=== PATIENT | male | born 1955 | race Caucasian/White ===

== ENCOUNTER → 2018-08-11 13:01 | Outpatient (CLI) | payer BC, SELFPAY ==
--- NOTE | 2018-08-11 13:26 | CT_ITS ---
CT angio abdomen CLINICAL INDICATION: Unexplained weight loss, atherosclerotic vascular disease, smoker ITS.REASON: rule out mesenteric ischemia ORDERING PHYSICIAN: Samson Do MD PATIENT AGE: 63 years COMPARISON: None TECHNIQUE: Axial images obtained with sagittal and coronal reformats. All CT scans at the facility use one or more dose reduction, viz: automated exposure control, ma/kV adjustment per patient size (including targeted exams where dose is matched to indication, i.e. head), or iterative reconstruction technique. PROCEDURE: Oral Contrast: None IV Contrast: 75 mL's Optiray 350 . FINDINGS: CT angiogram: There are mild atherosclerotic changes of the aortoiliac vessels as well as the celiac and SMA.. No significant stenosis of the celiac or SMA. ALENA is patent. A small calcific plaque is present at the ostium of the ALENA. No evidence of aortic aneurysm Mild atheromatous changes are present at the proximal aspect of the right renal artery with approximately 50% stenosis. Nonangiographic findings: Lower thorax: There are 2 noncalcified nodules in the right middle lobe. These measure 5 mm each. A noncalcified 4 mm nodule present in the left lower lobe laterally and a calcified granuloma is present in the left lower lobe inferiorly. There are multiple nonobstructing right renal calculi measuring up to 6 mm in the lower pole. The spleen, both adrenal glands, and pancreas have an unremarkable appearance. There is a mild amount of retained colonic feces. There is diverticulosis of the descending and sigmoid colon. No evidence of diverticulitis. There are degenerative and postsurgical changes of the lumbar spine. IMPRESSION: 1. Mild atheromatous changes of the aorta and its branches with no significant stenosis of the celiac or SMA. 2. The ALENA is small and there is a calcific plaque at its ostium suggesting a high-grade stenosis. It is difficult to evaluate the degree of stenosis due to the small caliber of the artery. 3. Multiple right renal nonobstructing calculi 4. Colonic diverticulosis 5. Approximately 50% stenosis of the ostium of the right renal artery
[2018-08-11 13:35] LABS: Basophils # 0.1 K/mm3 (0-0.2); Basophils % 0.8 % (0.1-2.0); Eosinophils # 0.4 K/mm3 (0.0-0.4); Eosinophils % 3.4 % (0.1-12.0); Hematocrit 47.4 % (42.0-52.0); Hemoglobin 16.1 g/dL (14.1-18.0); Lymphocytes # 1.7 K/mm3 (0.7-4.5); Lymphocytes % 16.8 % (10-50); Mean Corpuscular HGB Conc 33.9 g/dL (31.8-35.4); Mean Corpuscular Hemoglobin 33.1 pg (27.0-31.2); Mean Corpuscular Volume 97.6 fl (80-94); Mean Platelet Volume 7.2 fl (7.4-10.4); Monocytes # 0.7 K/mm3 (0.1-1.0); Monocytes % 6.6 % (1.7-9.3); Neutrophils # 7.4 K/mm3 (1.8-7.8); Neutrophils % 72.3 % (37.0-80.0); Platelet Count 213 K/mm3 (142-424); Red Blood Count 4.85 M/mm3 (4.60-6.20); Red Cell Distribution Width 12.6 % (11.5-17.5); White Blood Count 10.3 K/mm3 (4.8-10.8)
[2018-08-11 13:48] LABS: Alanine Aminotransferase 38 U/L (12-78); Albumin Level 3.6 gm/dL (3.4-5.0); Alkaline Phosphatase 85 U/L (46-116); Anion Gap 10.3 mEq/L (5-15); Aspartate Amino Transferase 20 U/L (15-37); Bilirubin,Direct 0.2 mg/dL (0.0-0.2); Bilirubin,Indirect 0.7 mg/dL (0.0-0.9); Bilirubin,Total 0.9 mg/dL (0.2-1.0); Blood Urea Nitrogen 19 mg/dL (7-18); Calcium 8.8 mg/dL (8.5-10.1); Carbon Dioxide 30 mmol/L (21.0-32.0); Chloride 104 mmol/L (98-107); Chol/HDL Ratio 2.3 (1-3.5); Cholesterol 104 mg/dL (140-200); Creatinine,Serum 0.78 mg/dL (0.70-1.30); Estimated Glomerular Filt Rate 101 ml/min (>60); GFR (African American) 122 ML/MIN (>60); Glucose 83 mg/dL (74-106); HDL Cholesterol 45 mg/dL (27-67); LDL Cholesterol 46 mg/dL (0-130); Potassium 4.3 mmoL/L (3.5-5.1); Sodium 140 mmol/L (136-145); Total Protein,Serum 7.4 gm/dL (6.4-8.2); Triglycerides 67 mg/dL (30-200); VLDL Cholesterol 13 mg/dL (0-40)
== END ==
PROVIDERS: PCP Family Medicine; Visit Provider Internal Medicine
DX: R63.4 Abnormal weight loss (principal); R63.0 Anorexia; I25.10 Atherosclerotic heart disease of native coronary artery without angina pectoris; E78.49 Other hyperlipidemia; I48.0 Paroxysmal atrial fibrillation; F10.20 Alcohol dependence, uncomplicated; I11.0 Hypertensive heart disease with heart failure; I25.2 Old myocardial infarction; I44.0 Atrioventricular block, first degree; I50.32 Chronic diastolic (congestive) heart failure; K55.9 Vascular disorder of intestine, unspecified; R00.1 Bradycardia, unspecified; R11.0 Nausea
CPT/HCPCS: 36415; 74175; 80048; 80061; 80076; 85025; Q9967

== ENCOUNTER → 2018-09-01 08:28 | Outpatient (CLI) | payer BC, SELFPAY ==
[2018-09-01 12:16] LABS: Blood Urea Nitrogen 15 mg/dL (7-18); Creatinine,Serum 0.75 mg/dL (0.70-1.30); Estimated Glomerular Filt Rate 105 ml/min (>60); GFR (African American) 127 ML/MIN (>60)
== END ==
PROVIDERS: Visit Provider Internal Medicine
DX: R07.9 Chest pain, unspecified (principal); I48.91 Unspecified atrial fibrillation; I50.30 Unspecified diastolic (congestive) heart failure; E78.5 Hyperlipidemia, unspecified; F10.20 Alcohol dependence, uncomplicated; J44.9 Chronic obstructive pulmonary disease, unspecified; R00.1 Bradycardia, unspecified
CPT/HCPCS: 36415; 82565; 84520

== ENCOUNTER → 2020-03-03 13:02 | Outpatient (CLI) | payer MEDICARE, OTHER, SELFPAY ==
--- NOTE | 2020-03-03 13:04 | CA_ITS ---
APPROVED REPORT EXAM: Comprehensive 2D, Doppler, and color-flow Echocardiogram Shear Assembler: Lisset Randall CRT Ht: 6 ft 3 in Wt: 201lbs BSA: 2.20 BP: 138/71 mmHg Indications: COPD, Smoker, fatigue, HTN, SOB, hyperlipidemia, CAD, PAD, HF, AFIB, alcoholism, stent 2D Dimensions LVOT 1.96 cm (M/F) 1.5-2.5 M-Mode Dimensions RVDd 3.16 cm (0.9-2.6) LA Diam 3.76 cm (1.9-4.0) LVDd 5.48 cm (3.5-5.7) Ao Diam 4.14 cm (2.0-3.7) LVDs 4.03 cm (3.5-5.7) IVSd 1.48 cm (0.6-1.1) PWd 1.10 cm (0.6-1.1) EF (Teich) 51.20% FS 26.50% EDV (Teich) 146.20 mL ESV (Teich) 71.30 mL LV Diastology E Decel Time 207.00 (160-240 msec) E/A Ratio 5.82 MED E' 12.10 (< 7 cm/sec) E'/MED E' Ratio 8.46 (>14) LAT E' 3.20 (<10 cm/sec) E/LAT E' Ratio 32.00 (>14) Aortic Valve AO Peak GR. 6.60 mmHg Mitral Valve MV A Velocity 18.00 (40-130 cm/s) E/A Ratio 5.82 MV Decel. Time 207.00 (160-240 ms) Pulmonary Valve PV Peak Velocity 48.00 (50-150 cm/s) Tricuspid Valve TR P. Velocity 219.00 cm/s RAP Estimate 10.00 mmHg RVSP 29.10 mmHg Left Ventricle Left atrium is mildly enlarged, left ventricle is normal size, mild concentric left ventricular hypertrophy, visually estimated ejection fraction 55% with no regional wall motion abnormality, diastolic parameters are inconclusive. Right Ventricle Right atrium and right ventricle are mildly enlarged with normal contractility. Aortic Valve Aortic valve is minimally thickened and fibrosed, there is no aortic stenosis or aortic insufficiency. Mitral Valve Mitral valve is grossly normal, there is mild mitral regurgitation. Tricuspid Valve Tricuspid valve is grossly normal, there is mild tricuspid regurgitation. Pulmonic Valve Pulmonic valve is poorly visualized. Great Vessels Aortic root is normal size. Pericardium No significant pericardial effusion noted. Conclusion 1. Mild biatrial enlargement, normal left ventricular size, mild concentric left ventricular hypertrophy, visually estimated ejection fraction 55% with no regional wall motion abnormality, diastolic parameters are inconclusive. 2. Mildly enlarged right ventricle with normal contractility. 3. Mild mitral and tricuspid regurgitation. 4. No significant pericardial effusion noted. Electronically signed by : Kan Bills, 03/07/2020 05:51:45
== END ==
PROVIDERS: PCP Family Medicine; Visit Provider Physician Assistant
DX: E78.2 Mixed hyperlipidemia (principal); F10.20 Alcohol dependence, uncomplicated; I11.0 Hypertensive heart disease with heart failure; I25.10 Atherosclerotic heart disease of native coronary artery without angina pectoris; I44.0 Atrioventricular block, first degree; I48.0 Paroxysmal atrial fibrillation; I50.32 Chronic diastolic (congestive) heart failure; I73.9 Peripheral vascular disease, unspecified; J43.8 Other emphysema; K55.1 Chronic vascular disorders of intestine; R06.00 Dyspnea, unspecified
CPT/HCPCS: 93306

== ENCOUNTER 2022-07-31 11:58 | Day surgery (SDC) | payer MEDICARE, OTHER, SELFPAY ==
[2022-07-31 12:12] VITALS: BMI 23.2
[2022-07-31 13:46] VITALS: BP 135/59; PULSE 51; RESP 16; O2SAT 97
[2022-07-31 14:15] VITALS: BP 144/70; PULSE 54; RESP 20; O2SAT 96
--- NOTE | 2022-07-31 14:27 | P.PCN_ITS ---
[facility] Loop Recorder Date: 07/31/22 Time: 14:27 Procedure Performed:: Implantation of loop recorder Indication:: Bradycardia Syncope Technique:: Patient was brought to the cardiac Dairy Chemist. After informed consent obtained, 1% lidocaine with epinephrine was used to anesthetize the site along the left anterior aspect of the chest near the sternal border. Using the preformed scalpel, an incision was made and using the supplied preloaded apparatus, the loop recorder was placed subcutaneously without difficulty. Following the deployment of the loop recorder interrogation of the device was performed to ensure appropriate voltage was being detected. Once this was verified, Steri- Strips were placed over the incision and the patient was prepped to discharge home. Patient tolerated the procedure well with minimal discomfort. Impression:: Successful implantation of loop recorder Serial Number:: [employer] Lux-Dx model number M301 Serial #[id number] Plan:: Routine postop care
[2022-07-31 14:30] VITALS: BP 124/77; PULSE 55; RESP 20; O2SAT 97
== END 2022-07-31 14:35 | disposition home or self-care (01) ==
PROVIDERS: PCP Family Medicine; Visit Provider Internal Medicine
DX: R42 Dizziness and giddiness (principal); R00.1 Bradycardia, unspecified; R55 Syncope and collapse
CPT/HCPCS: 33285; C1764

== ENCOUNTER 2023-05-13 07:08 | Outpatient (CLI) | payer MEDICARE, OTHER, SELFPAY ==
--- NOTE | 2023-05-13 07:09 | NM_ITS ---
APPROVED REPORT Exam: Nuclear Stress Test Indication: SOB, Syncope, HTN, High cholesterol, Tobacco use, Family history, CAD, Hx of NM Patient Location: Outpatient Stress Tech: Kiera Bell NC Tech:Jesusita Fan, ARRT, RT (R)(N) Ht: 6 ft 3 in Wt: 190 lbs HR: 60 bpm BP: 141/69 mmHg BSA: 2.15 m2 Rhythm: Atrial Fibrillation TID: 1.11 BMI: 23.7 History: SOB, Syncope, HTN, High cholesterol, Tobacco use, Family history, CAD, Hx of NM Procedure: Patient received 0.4 mg of intravenous Lexiscan, resting heart rate 60 bpm, resting blood pressure 141/69 mmHg, with Lexiscan maximum heart rate achieved was 80 bpm which is % of the maximum predicted heart rate and blood pressure was 146/77 mmHg. With Lexiscan, patient denied any complaint of chest pain. Cardiac Stress and Resting SPECT Images: Cardiac Stress and Resting SPECT images were obtained using technetium 99m Myoview 31.2 mCi stress and 10.30 mCi at rest. Resting and stress imaging in supine and prone positions demonstrate a large sized, severe, fixed perfusion defect in the inferior, inferolateral, and lateral LV hernandez, as well as medium-sized, moderate, fixed perfusion in the basal septal LV wall. Gated imaging demonstrates mild reduction in global LV systolic function. There is moderate hypokinesis of the basal to mid inferior and lateral LV hernandez. LVEF is calculated at 46%. Conclusion: Large sized, severe, fixed perfusion defect in the inferior, inferolateral, and lateral LV hernandez, as well as medium-sized, moderate, fixed perfusion in the basal septal LV wall. There is no evidence of reversible ischemia. Gated imaging demonstrates mild reduction in global LV systolic function. There is moderate hypokinesis of the basal to mid inferior and lateral LV hernandez. LVEF is calculated at 46%. Of note, the LVEF may be inaccurate in the setting of atrial fibrillation and frequent PVCs during acquisition of the study images. Electronically signed by : Maci Miles MD 05/13/2023 11:43:14
--- NOTE | 2023-05-13 08:28 | CA_ITS ---
APPROVED REPORT EXAM: Comprehensive 2D, Doppler, and color-flow Echocardiogram Circulation Supervisor: Katia Michael RT(R) Ht: 6 ft 3 in Wt: 194lbs BSA: 2.17 BP: 157/68 mmHg Indications: SOB, syncope, smoker, HTN, hyperlipidemia. 2D Dimensions LVEF (Bergeron's) 74.00 % M: 52 - 72 LV Volume 101.90 mL M: 62 - 150 LV Volume Index 47.0 mL/m2 M: 34 - 74 LA Volume 69.50 mL LA Volume Index 32.03 mL/m2 (M/F) 16-34 EF AP4 72.00 % EF AP2 74.0 % EF BP 74.0 % GL Strain -15.0 % M-Mode Dimensions RVDd 2.24 cm (0.9-2.6) LA Diam 4.04 cm (1.9-4.0) LVDd 5.46 cm (3.5-5.7) LVDs 4.29 cm (3.5-5.7) IVSd 0.94 cm (0.6-1.1) PWd 1.34 cm (0.6-1.1) EF (Teich) 43.00% FS 21.40% EDV (Teich) 145.00 mL ESV (Teich) 82.60 mL LV Diastology E Decel Time 170 (160-240 msec) E/A Ratio 2.3 Mitral Valve MV E Max Dilshad. 100.0 (40-130 cm/s) MV A Velocity 43.0 (40-130 cm/s) E/A Ratio 2.33 MV PHT 50.0 ms Left Ventricle The left ventricle is normal size. The left ventricular systolic function is normal. The left ventricular ejection fraction is within the normal range. There is increased LV wall thickness. There is normal LV segmental wall motion. Diastolic function is indeterminate. LVEF is 55%. Right Ventricle The right ventricle is normal size. The right ventricular systolic function is normal. Atria The left atrium size is normal. The right atrium size is normal. There is no Doppler evidence of interatrial shunt. Lipomatous hypertrophy of the interatrial septum is noted. Aortic Valve The aortic valve is mildly thickened. There is no aortic valvular stenosis. No aortic regurgitation is present. Mitral Valve The mitral valve leaflets are mildly thickened. No evidence of mitral valve stenosis. Trace mitral regurgitation. Tricuspid Valve The tricuspid valve leaflets are thin and pliable. Trace tricuspid regurgitation. There is insufficient TR jet to estimate RVSP. Pulmonic Valve The pulmonary valve is normal in structure. Trace pulmonic regurgitation. Great Vessels The aortic root is normal in size. The ascending aorta is not well-visualized. The IVC is not well-visualized. Pericardium There is no pericardial effusion. Electronically signed by : Maci Miles MD 05/16/2023 01:22:17
[2023-05-13] MEDS: REGADENOSON 0.4MG/5ML SYRINGE 0.400000000000000022 MG IV (08:43)
[2023-05-13] MEDS: SODIUM CHLORIDE 0.9% 10ML SYR (RAD ONLY) 10 ML IV ×2 (08:43)
[2023-05-13] MEDS: ISOTOPE MYOVIEW (PER STUDY) 1 DOSE IV (08:43)
--- NOTE | 2023-05-13 08:57 | CA_ITS ---
APPROVED REPORT Exam: Pharmacologic Technologist: Kiera Bell Ht: 6 ft 3 in Wt: 194 lbs BSA: 2.17 m2 HR: 39 bpm BP: 141/69 mmHg Rhythm: Atrial Fibrillation Indications: Dyspnea, Syncope Medical History Medications: Vitamin D3,,,,, Losartan,,,,, Atorvastatin,,,,, Ropinirole,,,,, XaRELTO,,,,, Tramadol,,,,, Nitroglycerin,,,,, SilDENAFIL,,,,, Ezetimibe,,,,, Stress Test Details Test: LEXISCAN HR Resting HR: 60 bpm Max Heart Rate (APMHR): 152 bpm Max HR Achieved: 80 bpm Target HR (85% APMHR): 129 bpm % of APMHR: 53 Recovery HR: 58 bpm BP Resting BP: 141.0/69.0 mmHg Max BP: 146.0/77.0 mmHg Recovery BP: 146.0/77.0 mmHg ECG Resting ECG: Atrial fibrillation, Nonspecific ST changes Stress ECG: No ST changes Arrhythmia: Frequent PVCs Clinical Exercise duration: 04:00 min Highest Stage Achieved: Exercise capacity: 1.0 METs Stress ECG Conclusion Symptoms: Shortness of breath, nausea, headache Arrhythmias/Ectopy: Frequent PVCs ST-T Changes: No significant ST changes Conclusion: EKG stress portion unremarkable. Myoview images reported separately. Test Summary REST . . . . . . . Resting REST 13:28 . . 60 . 141/ 69 . . Stage 1 . . . . . . . Myoview Injected Stage 1 01:00 . . 56 . . . . Stage 2 01:00 . . 63 . 136/ 64 . . Stage 3 01:00 . . 57 . 141/ 73 . . Stage 4 01:00 . . 50 . 125/ 71 . Stop exercise at 04:00 RECOVERY 01:00 . . 56 . . . . RECOVERY 02:00 . . 54 . . . . RECOVERY 03:00 . . 56 . . . . RECOVERY 03:55 . . 55 . 146/ 77 . . Electronically signed by : Maci Miles MD 05/13/2023 11:39:42
== END 2023-05-13 23:59 ==
PROVIDERS: Visit Provider Nurse Practitioner Family
DX: E78.5 Hyperlipidemia, unspecified (principal); I11.0 Hypertensive heart disease with heart failure; I25.10 Atherosclerotic heart disease of native coronary artery without angina pectoris; I48.91 Unspecified atrial fibrillation; I50.30 Unspecified diastolic (congestive) heart failure; R93.1 Abnormal findings on diagnostic imaging of heart and coronary circulation; R06.09 Other forms of dyspnea; R94.31 Abnormal electrocardiogram [ECG] [EKG]; R55 Syncope and collapse
CPT/HCPCS: 78452; 93017; 93018; 93306; A9502; J2785

== ENCOUNTER 2023-06-11 08:28 | Day surgery (SDC) | payer MEDICARE, OTHER, SELFPAY ==
[2023-06-11] VITALS (12 sets, daily range): BP systolic 112–153; BP diastolic 57–88; PULSE 40–58; RESP 17–18; TEMP 36.3; O2SAT 93–98; BMI 25.0
--- NOTE | 2023-06-11 07:18 | IR_ITS ---
APPROVED REPORT Patient Location: Outpatient [facility] Representative: REZA Wilde RT (R) PROCEDURES Left heart catheterization Left ventriculogram Selective coronary angiogram INDICATION Known coronary artery disease, Angina pectoris, Abnormal Myoview Informed consent was obtained prior to the procedure. COMPLICATIONS NONE Estimated Blood Loss: LESS THAN 10 ML TECHNIQUE One percent lidocaine used to anesthetize the right anterior aspect of the wrist. The right radial artery was accessed via the Seldinger technique. A 6 Tajik sheath was placed in the right radial artery. 2.5 mg of Verapamil, 800 mcg of nitroglycerin, 1mg Lidocaine and 5000 U Heparin were given through the arterial sheath. The papa catheter was also used to perform left heart catheterization, left ventriculogram and selective coronary angiogram. At the end of the procedure the sheath was removed good hemostasis was achieved using Traclet band, patient was transferred to the postop holding area in stable condition. ANGIOGRAPHIC RESULTS The left main artery Normal The left anterior descending artery Has a stent in the proximal segment which is widely patent with minimal in-stent restenosis and excellent proximal distal transitioning. The remaining LAD is widely patent with mild diffuse 10% luminal irregularities The circumflex artery Is a large dominant vessel with a proximal concentric 30% stenosis with remaining vessel being widely patent with diffuse 10% luminal regularities The right coronary artery Nondominant normal The THORNE ventriculogram reveals Dilated ventricle with reduced ejection fraction estimated between 35 and 45% The left ventricular end-diastolic pressure 15 mmHg IMPRESSION Widely patent proximal LAD stent Mild to moderate proximal dominant circumflex artery disease as described above Dilated ventricle with reduced ejection fraction unable to quantitate with LV gram Normal LVEDP PLAN 1. Medical management 2. Recommend echocardiogram to better evaluate ejection fraction Electronically signed by : Samson Do MD 06/11/2023 11:25:23
[2023-06-11 09:05] LABS: Anion Gap 7.9 mEq/L (5-15); Carbon Dioxide 33 mmol/L (22.0-30.0); Chloride 103 mmol/L (98-107); Glucose 89 mg/dl (74-100); Potassium 3.9 mmoL/L (3.5-5.1); Sodium 140 mmol/L (136-145)
[2023-06-11 09:08] LABS: Basophils # 0.1 K/mm3 (0-0.2); Eosinophils # 0.3 K/mm3 (0.0-0.4); Eosinophils % 2.2 % (0.1-12.0); Hemoglobin 16.3 g/dL (14.1-18.0); Lymphocytes # 1.3 K/mm3 (0.7-4.5); Lymphocytes % 11.3 % (10-50); Mean Corpuscular HGB Conc 32.6 g/dL (31.8-35.4); Mean Corpuscular Hemoglobin 36.5 pg (27.0-31.2); Mean Corpuscular Volume 112.1 fl (80-94); Mean Platelet Volume 7.9 fl (7.4-10.4); Monocytes # 0.9 K/mm3 (0.1-1.0); Monocytes % 7.6 % (1.7-9.3); Neutrophils # 8.8 K/mm3 (1.8-7.8); Platelet Count 187 K/mm3 (142-424); Red Blood Count 4.46 M/mm3 (4.60-6.20); Red Cell Distribution Width 13.9 % (11.5-17.5); White Blood Count 11.3 K/mm3 (4.8-10.8)
[2023-06-11 09:26] LABS: Blood Urea Nitrogen 15 mg/dl (9-20)
[2023-06-11 09:27] LABS: Creatinine Clearance Estimated 91 mL/min (50-200); Estimated Glomerular Filt Rate 112 ml/min (>60); GFR (African American) 136 ML/MIN (>60)
[2023-06-11] MEDS: diphenhydrAMINE 50MG/ML VIAL 50 MG IV (11:04)
[2023-06-11] MEDS: VERAPAMIL 2.5MG/ML 2ML VIAL 2.5 MG IV (11:04)
[2023-06-11] MEDS: 0.9 % SODIUM CHLORIDE 500 ML 25 ML IV (11:05)
[2023-06-11] MEDS: HEPARIN 1,000 UNITS/ML 10ML VIAL (CATH LAB) 10000 UNIT IV (11:05)
[2023-06-11] MEDS: HEPARIN 1,000 UNITS/500ML NS (CATH LAB) 3000 UNIT IV (11:05)
[2023-06-11] MEDS: LIDOCAINE 1% 10ML MDV 20 ML IJ (11:05)
[2023-06-11] MEDS: FENTANYL 100MCG/2ML VIAL 50 MCG IV (11:07)
[2023-06-11] MEDS: MIDAZOLAM HCL 1MG/1ML 5ML VIAL 1 MG IV (11:07)
[2023-06-11] MEDS: NITROGLYCERIN 800MCG/8ML SYR (CATH LAB) 800 MCG IA (11:09)
[2023-06-11] MEDS: IOPAMIDOL-370 (76%);100ML BOTTLE 50 ML IV (14:37)
== END 2023-06-11 14:32 | disposition home or self-care (01) ==
PROVIDERS: Visit Provider Internal Medicine
DX: I25.118 Atherosclerotic heart disease of native coronary artery with other forms of angina pectoris (principal); R93.1 Abnormal findings on diagnostic imaging of heart and coronary circulation; Z95.5 Presence of coronary angioplasty implant and graft; Z79.899 Other long term (current) drug therapy; Z79.01 Long term (current) use of anticoagulants; I11.0 Hypertensive heart disease with heart failure; E78.5 Hyperlipidemia, unspecified; I50.32 Chronic diastolic (congestive) heart failure; F17.210 Nicotine dependence, cigarettes, uncomplicated; F10.10 Alcohol abuse, uncomplicated
CPT/HCPCS: 80048; 85025; 93458; 99152; C1725; C1760; C1769; J1644; Q9967

== ENCOUNTER 2023-07-01 10:25 | Day surgery (SDC) | payer MEDICARE, OTHER, SELFPAY ==
--- NOTE | 2023-07-01 07:06 | IR_ITS ---
APPROVED REPORT Patient Location: Outpatient Metalworking Instructor: REZA Florentino RT (R) PROCEDURES 1. Pocket formation for biventricular pacemaker generator with cardiac resynchronization therapy. 2. Placement of atrial sensing and pacing lead into the right atrial appendage. 3. Placement of a right ventricular sensing, pacing lead in the right ventricular apex. 4. Placement of left ventricular sensing pacing lead via the coronary sinus. 5. Permanent cardiac resynchronization therapy with biventricular pacemaker. 6. Loop recorder device removal. INDICATION Paroxysmal Atrial Fibrilation, Ejection fraction 30%, Anticipated right ventricular pacing in excess of 20 and 40% Informed consent was obtained prior to the procedure. COMPLICATIONS NONE Estimated Blood Loss: LESS THAN 10 ML TECHNIQUE 1% Lidocaine with epinephrine used to anesthetized the left anterior aspect of the chest. Scalpel was used to make the initial cutaneous incision while electrocautery was used to dissect down tinto the fascia. The fascia was lifted off the pectoralis muscle and digitally manipulated creating a pocket for the pacemaker. The patient was then placed in Trendelenburg position and the subclavian vein was accessed three times via the Selinger technique, there are three wires in the vein. A 9.5 Latvian sheath and dilator was then placed over one of the wires while keeping the other two wires in place within the subclavian vein. The dilator was removed from the sheath. Using fluoroscopic guidance, contrast was used to visualize the coronary sinus, the left ventricular lead was placed into the coronary sinus. Electronic interrogation proved acceptable thresholds and voltage within the lead. Using 3-0 silk, the left ventricular lead was then secured into place and sheath peeled away. A 6 Latvian sheath was placed under fluoroscopic guidance into the subclavian vein over one of the wires while keeping the other wire in place within the subclavian vein. The dilator was removed from the sheath. Using fluoroscopic guidance, the ventricular lead was placed into the right ventricular apex, screwed and secured into place. Electronic interrogation proved acceptable thresholds and voltage within the lead. Using 3-0 silk, the ventricular lead was then secured into place. Lead was secured to the facia using the 3-0 silk. Following this, the sheath was pealed away. An additional 6 Latvian fresh sheath and dilator was placed over the existing wire. Using fluoroscopic guidance, the atrial lead was the placed into the right atrial appendage and screwed and secured in place. Electrical interrogation demonstrated acceptable thresholds and voltage number. The atrial lead was then secured into place using 3-0 silk. 1 gram of Ancef was used to flush the pocket. Following the pacemaker generator being secured to the fascia and in place, Monocryl was used to close the subcutaneous layers while terrance were used to close the cutaneous layer. A pressure dressing was placed and the patient was transferred to the postop holding area in stable condition for postoperative care. Small incision, using scalpel, made over loop device. Hemostats used to remove loop device from body. Dermabond and sterile dressing used to cover incision. INTERROGATION Generator Model number: Quadra Allure MPI, MID WIFE-P, [id number] Generator Serial number: [id number] Atrial lead model number: Tendril STS, 8TC, 52cm Atrial lead serial number: [id number] P-wave: N/A Impedance: 610 ohms Threshold: 1.7mV Right Ventricular lead model number: Tendril STS, 8TC, 58cm Right Ventricular lead serial number: [id number] R-wave: 0.5V@0.4ms Impedance: 680 ohms Threshold: 11.9mV Left Ventricular lead model number: Quartet, 1458Q, 86cm Left Ventricular lead serial number: [id number] R-wave: 1.0V@1.0ms Impedance: 1200 ohms Pacing Parameters: Mode: DDDR Base/Max Track:60 ppm / 130 ppm No diaphragmatic stimulation at 10 volts. IMPRESSION 1. Successful Pocket formation for biventricular pacemaker generator with cardiac resynchronization therapy. 2. Successful Placement of atrial sensing and pacing lead into the right atrial appendage. 3. Successful Placement of a right ventricular sensing, pacing lead in the right ventricular apex. 4. Successful Placement of left ventricular sensing pacing lead via the coronary sinus. 5. Successful Permanent cardiac resynchronization therapy with biventricular pacemaker. 6. Successful Loop recorder device removal. PLAN 1. Postop wound care. Electronically signed by : Samson Do MD 10/29/2023 08:26:40
[2023-07-01 10:28] VITALS: BMI 25.3
[2023-07-01 10:51] LABS: Basophils # 0.1 K/mm3 (0-0.2); Basophils % 1.1 % (0.1-2.0); Eosinophils # 0.3 K/mm3 (0.0-0.4); Eosinophils % 2.3 % (0.1-12.0); Hematocrit 50.4 % (42.0-52.0); Hemoglobin 16.6 g/dL (14.1-18.0); Lymphocytes # 1.5 K/mm3 (0.7-4.5); Lymphocytes % 11.4 % (10-50); Mean Corpuscular Hemoglobin 35.7 pg (27.0-31.2); Mean Corpuscular Volume 108.2 fl (80-94); Mean Platelet Volume 7.8 fl (7.4-10.4); Monocytes # 0.8 K/mm3 (0.1-1.0); Monocytes % 6.2 % (1.7-9.3); Neutrophils # 10.2 K/mm3 (1.8-7.8); Neutrophils % 78.9 % (37.0-80.0); Platelet Count 207 K/mm3 (142-424); Red Blood Count 4.66 M/mm3 (4.60-6.20); Red Cell Distribution Width 13.8 % (11.5-17.5); White Blood Count 12.9 K/mm3 (4.8-10.8)
[2023-07-01 10:58] LABS: Chloride 105 mmol/L (98-107); Potassium 4.1 mmoL/L (3.5-5.1); Sodium 140 mmol/L (136-145)
[2023-07-01 11:01] LABS: Blood Urea Nitrogen 10 mg/dl (9-20); Creatinine Clearance Estimated 92 mL/min (50-200); Estimated Glomerular Filt Rate 134 ml/min (>60); GFR (African American) 162 ML/MIN (>60)
[2023-07-01 11:02] LABS: Anion Gap 5.1 mEq/L (5-15); Calcium 9.5 mg/dl (8.4-10.2); Carbon Dioxide 34 mmol/L (22.0-30.0); Glucose 99 mg/dl (74-100)
--- NOTE | 2023-07-01 13:01 | EXP.ANES.CKL ---
[facility] Disclaimer: The information contained in this section may have been updated after the patient was seen, as this information can be updated by other users. Medical History (Updated 06/19/23 @ 11:34 by Delma Gibbons APRN) Fatigue Coronary arteriosclerosis PAD (peripheral artery disease) SOB (shortness of breath) on exertion Atypical angina Abnormal findings on diagnostic imaging of heart and coronary circulation Syncope Dyspnea HHD (hypertensive heart disease) Stenosis of inferior mesenteric artery HLD (hyperlipidemia) Social History Smoking Status: Current every day smoker tobacco type: cigarettes packs per day: 1 quit status: considering quitting alcohol intake: current substance use type: denies use current occupational status: unemployed, retired and disabled Travel in the last 8 weeks: Inside the [place] household members: spouse housing: house [facility] Anesthesia Checklist Patient Identification Patient Identification: Arm Band Structural Data Admitted From: Home Planned Operative Procedure/s: Dual Chamber Pacemaker Consent for Planned Operative Procedure(s) Verified: Yes Verified Documents: Surgical Consent and History and Physical NPO Status Verified Time NPO: 00:00 Additional verifications Anesthesia Reactions: No Airway Assessment Mallampati Score:: Class II C-Spine Mobility Assessed: Yes TMJ Mobility Assessed: Yes Neurological Assessment Level of Consciousness: Awake and Alert Anesthesia Plan Anesthesia Risk discussed: Yes Anesthesia Plan: Verified ASA Class: III Anesthesia Type: MAC
[2023-07-01 13:16] VITALS: BP 174/83; PULSE 58; RESP 18; O2SAT 96
[2023-07-01] MEDS: LORazepam 2MG/ML VIAL 2 MG IV (14:47)
[2023-07-01] MEDS: LIDOCAINE 1% W/EPI 1:100,000 20ML VIAL 20 ML SQ (15:10)
[2023-07-01] MEDS: CEFAZOLIN SODIUM 1 GM in 0.9 % SODIUM CHLORIDE 50 ML IV (15:11)
[2023-07-01] MEDS: CEFAZOLIN 1GM VIAL 1 GM TP (15:11)
[2023-07-01] MEDS: 0.9 % SODIUM CHLORIDE 1000ML 1,000 ML 25 ML IV (15:12)
--- NOTE | 2023-07-01 17:09 | XR_ITS ---
PROCEDURE INFORMATION: Exam: XR Chest Exam date and time: 07/01/2023 5:31 PM Age: 68 years old Clinical indication: Device placement; Cardiac pacemaker placement or adjustment; Prior surgery; Surgery date: Post-operative (0-2 days); Additional info: Confirm pacemaker/aid placement TECHNIQUE: Imaging protocol: Radiologic exam of the chest. Views: 1 view. COMPARISON: XA CL PACEMAKER DEFIBRILATOR 07/01/2023 7:06 AM FINDINGS: Tubes, catheters and devices: Left chest wall biventricular pacemaker with leads in expected location on AP view. Surgical terrance adjacent to the device. Lungs: Hypoaeration of the lungs. No focal consolidation or pulmonary edema. Pleural spaces: No pleural effusion. No pneumothorax. Heart/Mediastinum: Borderline enlarged heart. Bones/joints: No acute abnormality. IMPRESSION: 1. Left chest wall biventricular pacemaker with leads in expected location on AP view. 2. No acute abnormality.
--- NOTE | 2023-07-01 17:11 | ECG_ITS ---
APPROVED REPORT Exam: Resting ECG HR:80 bpm ECG Measurements Heart Rate 80 AXES QRSd 154 QRS 96 QT 433 T -34 QTc 468 Conclusion ELECTRONIC VENTRICULAR PACEMAKER ABNORMAL RHYTHM ECG UNCONFIRMED REPORT Electronically signed by : Justen Hobbs MD 07/03/2023 19:24:57
[2023-07-01 17:13] VITALS: BP 141/86; PULSE 79; RESP 19; O2SAT 92
[2023-07-01] MEDS: IOPAMIDOL-370 (76%);100ML BOTTLE 150 ML IV (17:22)
[2023-07-01 17:30] VITALS: BP 160/106; PULSE 80; RESP 16; O2SAT 91
[2023-07-01 17:43] VITALS: BP 160/95; PULSE 79; RESP 16; O2SAT 92
[2023-07-01 18:00] VITALS: BP 160/85; PULSE 80; RESP 18; O2SAT 94
[2023-07-01 18:14] VITALS: BP 161/99; PULSE 80; RESP 18; O2SAT 94
== END 2023-07-01 18:44 | disposition home or self-care (01) ==
PROVIDERS: PCP Family Medicine; Visit Provider Internal Medicine
DX: I49.9 Cardiac arrhythmia, unspecified (principal); R00.1 Bradycardia, unspecified; R42 Dizziness and giddiness; F17.210 Nicotine dependence, cigarettes, uncomplicated; I25.10 Atherosclerotic heart disease of native coronary artery without angina pectoris; I73.9 Peripheral vascular disease, unspecified; I11.0 Hypertensive heart disease with heart failure; I50.32 Chronic diastolic (congestive) heart failure; I48.0 Paroxysmal atrial fibrillation; E78.2 Mixed hyperlipidemia; Z79.899 Other long term (current) drug therapy; Z79.01 Long term (current) use of anticoagulants; Z95.5 Presence of coronary angioplasty implant and graft
CPT/HCPCS: 33208; 33225; 36415; 71045; 80048; 85025; 93005; C1769; C1898; C1900; C2621; J2704; Q9967

== ENCOUNTER 2024-05-26 15:11 | Outpatient (CLI) | payer MEDICARE, OTHER, SELFPAY ==
[2024-05-26 15:35] LABS: Basophils # 0.1 K/mm3 (0-0.2); Basophils % 0.8 % (0.1-2.0); Eosinophils % 0.4 % (0.1-12.0); Hematocrit 42.4 % (42.0-52.0); Hemoglobin 14.3 g/dL (14.1-18.0); Lymphocytes # 1.4 K/mm3 (0.7-4.5); Lymphocytes % 13.5 % (10-50); Mean Corpuscular HGB Conc 33.7 g/dL (31.8-35.4); Mean Corpuscular Hemoglobin 31.6 pg (27.0-31.2); Mean Corpuscular Volume 93.8 fl (80-94); Mean Platelet Volume 9.4 fl (7.4-10.4); Monocytes # 1.1 K/mm3 (0.1-1.0); Monocytes % 10.3 % (1.7-9.3); Neutrophils # 7.6 K/mm3 (1.8-7.8); Neutrophils % 74.5 % (37.0-80.0); Platelet Count 204 K/mm3 (142-424); Red Blood Count 4.52 M/mm3 (4.60-6.20); Red Cell Distribution Width 12.7 % (11.5-17.5); White Blood Count 10.2 K/mm3 (4.8-10.8)
[2024-05-26 15:49] LABS: Alanine Aminotransferase 35 U/L (12-78); Albumin Level 4.4 g/dl (3.5-5.0); Alkaline Phosphatase 79 U/L (38-126); Anion Gap 9.1 mEq/L (5-15); Aspartate Amino Transferase 73 U/L (17-59); Bilirubin,Direct 0.2 mg/dl (0.0-0.4); Bilirubin,Indirect 0.6 mg/dL (0.0-0.9); Bilirubin,Total 0.8 mg/dl (0.2-1.3); Bilirubin,Unconjugated 0.7 mg/dL (0.0-1.1); Blood Urea Nitrogen 18 mg/dl (9-20); Calcium 9.5 mg/dl (8.4-10.2); Carbon Dioxide 31 mmol/L (22.0-30.0); Chloride 104 mmol/L (98-107); Chol/HDL Ratio 3.1 (1-3.5); Cholesterol 150 mg/dl (140-200); Estimated Glomerular Filt Rate 112 ml/min (>60); GFR (African American) 135 ML/MIN (>60); Glucose 95 mg/dl (74-100); HDL Cholesterol 48 mg/dl (40-60); Potassium 4.1 mmoL/L (3.5-5.1); Sodium 140 mmol/L (136-145); Triglycerides 90 mg/dl (30-150); VLDL Cholesterol 18 mg/dL (0-40)
[2024-05-26 15:53] LABS: D-Dimer < 0.25 ug/mL (0.0-0.5)
[2024-05-26 16:03] LABS: Troponin I 0.04 ng/ml (0.00-0.034)
[2024-05-26 16:55] LABS: Free T4 (Free Thyroxine) 1.28 ng/dl (0.78-2.19)
== END 2024-05-26 23:59 | disposition home or self-care (01) ==
LOC: LAB 15:12
PROVIDERS: PCP Internal Medicine Adolescent Medicine; Visit Provider Internal Medicine
DX: R07.89 Other chest pain (principal); R53.83 Other fatigue; I25.10 Atherosclerotic heart disease of native coronary artery without angina pectoris; I73.9 Peripheral vascular disease, unspecified; F17.200 Nicotine dependence, unspecified, uncomplicated; E78.5 Hyperlipidemia, unspecified; I11.0 Hypertensive heart disease with heart failure; I50.32 Chronic diastolic (congestive) heart failure; I48.0 Paroxysmal atrial fibrillation; R00.1 Bradycardia, unspecified; J43.8 Other emphysema; R07.9 Chest pain, unspecified; K21.9 Gastro-esophageal reflux disease without esophagitis; R06.00 Dyspnea, unspecified; F17.210 Nicotine dependence, cigarettes, uncomplicated
CPT/HCPCS: 36415; 80048; 80061; 80076; 83735; 84439; 84443; 84484; 85025; 85378

== ENCOUNTER 2024-06-01 07:35 | Day surgery (SDC) | payer MEDICARE, OTHER, SELFPAY ==
[2024-06-01] VITALS (13 sets, daily range): BP systolic 123–157; BP diastolic 65–89; PULSE 60–73; RESP 16–18; TEMP 36.6–36.8; O2SAT 94–100; BMI 22.4
--- NOTE | 2024-06-01 07:17 | IR_ITS ---
APPROVED REPORT Patient Location: Outpatient Perl Software Engineer: REZA Wilde RT (R) PROCEDURES Left heart catheterization Left ventriculogram Selective coronary angiogram Drug-eluting stent deployment to the proximal dominant circumflex artery INDICATION Coronary artery disease, Accelerated angina pectoris, Informed consent was obtained prior to the procedure. COMPLICATIONS NONE Estimated Blood Loss: LESS THAN 10 ML TECHNIQUE One percent lidocaine was used to anesthetize the right groin. The right femoral artery was accessed via the Seldinger technique. A 4-Armenian sheath was placed in the right femoral artery. The JL-4 and JR-4 catheter was also used to perform left heart catheterization left ventriculogram and selective coronary angiogram. At the end the diagnostic angiogram the 4 Armenian sheath was exchanged for a 6 Armenian sheath and therapeutic heparin was administered giving a therapeutic ACT. A JL 4 guide catheter was placed in the left main artery followed by Choice PT export wire placed down the circumflex artery. A 4 mm x 26 mm [place] frontier stent was deployed at 14 dora reducing the stenosis to 20 to 30%. A 4 mm x 8 mm noncompliant balloon was deployed at 20 dora and then 24 dora to finally reduce the calcified stenosis to 0%. Excellent angiographic results were obtained with JARROD-3 flow being present before and after the procedure. At the end of the procedure the apparatus was removed the groin is reprepped closure change sheath was removed good hemostasis was achieved using Perclose device patient was transferred to the postop putting in stable condition ANGIOGRAPHIC RESULTS The left main artery Normal The left anterior descending artery Has a stent in the proximal to mid segment which has a mid stent concentric 20 to 30% stenosis with excellent distal transitioning. There are additional 10% luminal regularities throughout The circumflex artery Large and dominant with a proximal calcified concentric 80% stenosis followed by a long tubular 20 to 30% stenosis. The right coronary artery Vestigial and normal The THORNE ventriculogram reveals Reduced at 45% The left ventricular end-diastolic pressure 10 mmHg IMPRESSION Severe proximal dominant circumflex artery disease with successful stenting reducing the lesion to 0% with 1 drug-eluting stent Reduced ejection fraction Normal LVEDP PLAN 1. Dual antiplatelet therapy 2. Cardiac rehabilitation 3. Avoidance of tobacco products 4. Risk factor modification 5. LDL less than 55 to be achieved with high intensity statin Electronically signed by : Samson Do MD 06/01/2024 10:39:24
--- NOTE | 2024-06-01 07:41 | CA_ITS ---
APPROVED REPORT EXAM: Comprehensive 2D, Doppler, and color-flow Echocardiogram C Engineer: SOCORRO Burdick, RVS Ht: 6 ft 3 in Wt: 179lbs BSA: 2.09 BP: 101/55 mmHg Rhythm: Atrial Fibrillation Indications: Afib, Abn EKG, CP, HTN, Smoker, PAD, PVD, ETOH abuse, Pacer Echo Enhancing Agent Comments: Limited windows due to lung impedence and patient movement 2D Dimensions IVSd 0.95 cm M: 0.6-1.2 LVEF (Visual) 53.80 % PWd 0.96 cm M: 0.6 - 1.2 LA Volume 81.10 mL LVDd 5.71 cm M: 4.2 - 5.9 LA Volume Index 38.62 mL/m2 (M/F) 16-34 LVDs 4.10 cm M: 2.5 - 4.0 EF AP4 21.30 % Left Atrium 4.00 cm M: 3.0 - 4.0 GL Strain -8.5 % M-Mode Dimensions LA Diam 3.90 cm (1.9-4.0) EPSs 1.03 cm TAPSE 2.42 (<1.7) LV Diastology E Decel Time 427 (160-240 msec) E/A Ratio 0.73 MED A' 9.20 cm/s LAT A' 9.30 cm/s Aortic Valve AMBER Index 1.18 cm2/m2 AoV Peak Dilshad. 163.0 (50-130 cm/s) AO Peak GR. 10.60 mmHg AO Mean GR. 5.20 (<5 mmHg) AO VTI 32.3 (18-25 cm) AMBER (VTI) 2.52 (2.5-4.5 cm2) Mitral Valve MV A Velocity 77.0 (40-130 cm/s) E/A Ratio 0.73 Left Ventricle The left ventricle is normal size. Left ventricular systolic function is moderately to severely decreased. There is increased LV wall thickness. There is moderate to severe global hypokinesis present. The septum is asynchronous. Grade 1 diastolic dysfunction is present. LVEF is 30%. Right Ventricle The right ventricle is normal size. Right ventricle is mildly hypokinetic. Atria Left atrium is mildly dilated. Right atrium is mildly dilated. There is no Doppler evidence of interatrial shunt. Aortic Valve The aortic valve is mildly thickened. There is no aortic valvular stenosis. No aortic regurgitation is present. Mitral Valve The mitral valve is normal in structure. No evidence of mitral valve stenosis. Mild mitral regurgitation. Tricuspid Valve Tricuspid valve is grossly normal in structure and function. Trace tricuspid regurgitation. There is insufficient TR jet to estimate RVSP. Pulmonic Valve The pulmonary valve is normal in structure. Trace pulmonic regurgitation. Great Vessels The aortic root is normal in size. IVC is normal in size and collapses >50% with inspiration. Pericardium There is no pericardial effusion. Other Information Study Quality: Fair Conclusion Moderate to severe reduction in LV systolic function (LVEF 30%). Asynchronous septum. Normal RV size with mild reduction in RV function. Mild biatrial dilation. Mild MR. Compared to prior study from 05/13/2023, the reduction in LV systolic function is new. Electronically signed by : Maci Miles MD 06/08/2024 12:18:22
[2024-06-01 08:56] LABS: Anion Gap 9.2 mEq/L (5-15); Blood Urea Nitrogen 17 mg/dl (9-20); Calcium 9.5 mg/dl (8.4-10.2); Carbon Dioxide 33 mmol/L (22.0-30.0); Chloride 104 mmol/L (98-107); Creatinine Clearance Estimated 80 mL/min (50-200); Estimated Glomerular Filt Rate 112 ml/min (>60); GFR (African American) 135 ML/MIN (>60); Glucose 80 mg/dl (74-100); Potassium 4.2 mmoL/L (3.5-5.1); Sodium 142 mmol/L (136-145)
[2024-06-01 09:07] LABS: Basophils # 0.1 K/mm3 (0-0.2); Basophils % 1.1 % (0.1-2.0); Eosinophils # 0.2 K/mm3 (0.0-0.4); Eosinophils % 2.1 % (0.1-12.0); Hematocrit 38.9 % (42.0-52.0); Lymphocytes # 1.4 K/mm3 (0.7-4.5); Lymphocytes % 16.5 % (10-50); Mean Corpuscular HGB Conc 33.4 g/dL (31.8-35.4); Mean Corpuscular Hemoglobin 31.3 pg (27.0-31.2); Mean Corpuscular Volume 93.5 fl (80-94); Mean Platelet Volume 9.4 fl (7.4-10.4); Monocytes # 0.7 K/mm3 (0.1-1.0); Monocytes % 8.1 % (1.7-9.3); Neutrophils # 6.1 K/mm3 (1.8-7.8); Neutrophils % 71.7 % (37.0-80.0); Platelet Count 169 K/mm3 (142-424); Red Blood Count 4.16 M/mm3 (4.60-6.20); Red Cell Distribution Width 12.6 % (11.5-17.5); White Blood Count 8.5 K/mm3 (4.8-10.8)
[2024-06-01] MEDS: diphenhydrAMINE 50MG/ML VIAL 50 MG IV (09:22)
[2024-06-01] MEDS: LIDOCAINE 1% 10ML MDV 20 ML IJ (09:22)
[2024-06-01] MEDS: HEPARIN 1,000 UNITS/ML 10ML VIAL (CATH LAB) 10000 UNIT IV ×3 (09:22→10:16)
[2024-06-01] MEDS: 0.9 % SODIUM CHLORIDE 500 ML 25 ML IV (09:23)
[2024-06-01] MEDS: HEPARIN 1,000 UNITS/500ML NS (CATH LAB) 3000 UNIT IV (09:23)
[2024-06-01] MEDS: NITROGLYCERIN 800MCG/8ML SYR (CATH LAB) 800 MCG IA (09:23)
[2024-06-01] MEDS: VERAPAMIL 2.5MG/ML 2ML VIAL 2.5 MG IV (09:23)
[2024-06-01] MEDS: MIDAZOLAM HCL 1MG/ML 5ML VIAL 1 MG IV (09:46)
[2024-06-01] MEDS: FENTANYL 100MCG/2ML VIAL 50 MCG IV (09:46)
[2024-06-01] MEDS: CLOPIDOGREL 300MG TABLET 600 MG PO (10:03)
--- NOTE | 2024-06-01 10:29 | SUR.PHASEII ---
per MD, no beta nadia needs to be ordered
[2024-06-01] MEDS: IOPAMIDOL-370 (76%);100ML BOTTLE 110 ML IV (10:54)
[2024-06-01 10:57] LABS: CATHL Activated Clotting Time 269 SEC (74-125)
== END 2024-06-01 14:17 | disposition home or self-care (01) ==
PROVIDERS: PCP Family Medicine; Visit Provider Internal Medicine
DX: I25.118 Atherosclerotic heart disease of native coronary artery with other forms of angina pectoris (principal); I11.0 Hypertensive heart disease with heart failure; I50.32 Chronic diastolic (congestive) heart failure; I48.0 Paroxysmal atrial fibrillation; I77.1 Stricture of artery; R53.83 Other fatigue; R07.89 Other chest pain; I73.9 Peripheral vascular disease, unspecified; F17.210 Nicotine dependence, cigarettes, uncomplicated; E78.2 Mixed hyperlipidemia; J43.8 Other emphysema; K21.9 Gastro-esophageal reflux disease without esophagitis; R00.1 Bradycardia, unspecified; Z88.8 Allergy status to other drugs, medicaments and biological substances; Z79.01 Long term (current) use of anticoagulants; Z79.899 Other long term (current) drug therapy
CPT/HCPCS: 80048; 85025; 85347; 92928; 93306; 93458; 99152; 99153; C1725; C1760; C1769; C1874; C9600; J1200; J1644; J3010; Q9967

== ENCOUNTER 2024-09-02 12:27 | Outpatient (CLI) | payer MEDICARE, SELFPAY ==
--- NOTE | 2024-09-02 12:40 | CA_ITS ---
APPROVED REPORT EXAM: Limited 2D and color flow Echocardiogram Billboard Erector: RT Camilla(R) Ht: 6 ft 3 in Wt: 174lbs BSA: 2.07 BP: 123/65 mmHg Indications: limited echo to reassess EF Other Information Study Quality: Fair Conclusion This is a limited TTE to evaluate for LV systolic function. Limited windows are obtained. The left ventricle is normal in size. There is increased LV wall thickness. There is low-normal global LV systolic function. The septum is asynchronous. LVEF is 50%. Compared to prior study from 06/01/2024, the LV systolic function has improved and is now low-normal. Electronically signed by : Maci Miles MD 09/02/2024 14:09:17
--- OUTSIDE RECORDS SUMMARY | 2024-09-02 13:36 | XMS_ITS | Encounter Summary ---
Author Organization [facility] Address [address] [place] [address] Care Team Providers Care Medical Charge Entry Specialist Name Role Phone Shadi Ya MD Primary Care Provider [phone] Encounter Details Date Type Department Care Team (Latest Contact Info) Description 01/18/2019 Transcribe Orders Centralized Scheduling [address] [place] [address] Mandi Cisneros RN Impingement syndrome of right shoulder (Primary Dx) Social History Tobacco Use Types Packs/Day Years Used Date Smoking Tobacco: Every Day Cigarettes Smokeless Tobacco: Never Alcohol Use Standard Drinks/Week Comments Yes 0 (1 standard drink = 0.6 oz pur e alcohol) Sex and Gender Information Value Date Recorded Sex Assigned at Not on file Legal Sex Male 2:46 PM EDT Gender Identity Not on file Sexual Orientation Not on file documented as of this encounter Plan of Treatment Not on file documented as of this encounter Visit Diagnoses Diagnosis Impingement syndrome of right shoulder- Primary documented in this encounter Care Teams Medical Charge Entry Specialist Relationship Specialty Start Date End Date Shadi Ya MD [address] [place] [address] PCP - General Family Medicine 01/20/19 documented as of this encounter
--- OUTSIDE RECORDS SUMMARY | 2024-09-02 13:36 | XMS_ITS | Data Portability ---
Author Organization [facility] Address [address] [place] [address] Assessment No assessment recorded. Plan of Treatment Reminders Order Date Submit Date Provider Last Modified By Organization Details Last Modified Time Details Appointments None recorded. Lab pathology study - 1. impression - benign nevus 2. pigmented papule, rule out atypia 2020 021 ALIYA [facility], [address], [place], [address], 1 15:08:34 unlisted lab - compliance drug analysis, ur 2019 020 ALIYA [facility], [address], [place], [address], 0 15:08:38 Referral orthopedic referral 2018 019 ALIYA [facility], [address] [place] [address] [place], [address], 9 09:05:17 Procedures None recorded. Surgeries None recorded. Imaging None recorded. Medication Orders tramadol 50 mg tablet 2019 020 [facility], [address] [place] [address], [id number], 1 13:19:00 Patient TargetsNo targets recorded. Patient Instructions Encounter Date Encounter Id Patient Instructions Last Modified By Organization Details Last Modified Time 01/13/2019 [id number] Advised pt. that we will refax the requested once again to the insurance. He will contact orthopedic physicians on his plan to try to get scheduled for evaluation. Not available 01/13/2019 17:28:08 02/16/2019 [id number] reviewed consult with dr. diamond fields has ordered MRI of cervical spine awaiting approval from insurance. [email or web address] Not available 02/16/2019 10:36:42 09/05/2020 [id number] future procedure: 6 mm punch on right base of neck - 4 nylon shave on left neck 8 mm punch on mid back - 4 nylon [email or web address] Not available 09/05/2020 14:21:56 12/06/2020 [id number] follow up pending pathology [email or web address] Not available 12/06/2020 13:39:01 Reason for Referral Orthopedic Referral for Impi ngement syndrome of right shoulder region Referring Physician: Shadi Ya, Family Medicine, Encounter Date: 01/13/2019 Results Created Date Observation Date Name Description Value Unit Range Abnormal Flag Note LastModifiedBy Organization Detail LastModifiedTime 04/14/19 20 04/19/2019 drug scree n, urine summary report (summary) FINAL ===== ===== ===== ===== ===== ===== ===== ===== ===== ===== ===== ===== ===== === TOXAS SURE COMP DRUG EDWARD SIS,U R ===== ===== ===== ===== ===== ===== ===== ===== ===== ===== ===== ===== ===== === Test Resul t Flag Units Drug Prese nt and Decla red for Presc ripti on Verif icati on Trama dol >2660 EXPEC LITO ng/mg creat O-Babar methy ltram adol >2660 EXPEC LITO ng/mg creat N-Babar methy ltram adol 889 EXPEC LITO ng/mg creat Sourc e of trama dol is a presc ripti on medic ation . O-babar methy ltram adol and N-babar methy ltram adol are expec lito metab olite s of trama dol. Metho carba mol PRESE NT EXPEC LITO Drug Prese nt not Decla red for Presc ripti on Verif icati on Carbo xy-TH C 111 UNEXP ECTED ng/mg creat Carbo xy-TH C is a metab olite of tetra hydro canna binol (THC) . Sourc e of THC is most commo nly illic it, but THC is also prese nt in a sched uled presc ripti on medic ation . Drug Absen t but Decla red for Presc ripti on Verif icati on Diclo fenac Not Detec lito UNEXP ECTED Diclo fenac , as indic ated in the decla red medic ation list, is not alway s detec lito even when used as direc lito. ===== ===== ===== ===== ===== ===== ===== ===== ===== ===== ===== ===== ===== === Test Resul t Flag Units Ref Range Creat inine 188 mg/dL >=20 ===== ===== ===== ===== ===== ===== ===== ===== ===== ===== ===== ===== ===== === Decla red Medic ation s: The germaine ing and inter preta tion on this repor t are based on the follo wing decla red medic ation s. Unexp ected resul ts may arise from inacc uraci es in the decla red medic ation s. Not e: The testi ng scope of this panel inclu babar these medic ation s: Metho carba mol Trama dol Not e: The testi ng scope of this panel does not inclu de small to moder ate amoun ts of these repor lito medic ation s: Diclo fenac Not e: The testi ng scope of this panel does not inclu de follo wing repor lito medic ation s: Atorv astat in Bisop rolol Clopi dogre l Ezeti mibe Losar dodson Nitro glyce rin (Nitr ostat ) Rivar oxaba n (Xare lto) Ropin irole Silde nafil (Iraida gelacio) ===== ===== ===== ===== ===== ===== ===== ===== ===== ===== ===== ===== ===== === For clini fernanda consu ltati on, pleas e call [phone]. ===== ===== ===== ===== ===== ===== ===== ===== ===== ===== ===== ===== ===== === Not Available [facility] [address] [facility] [address], [place], [address], 04/19/2019 15:08:38 04/14/19 20 04/19/2019 drug scree n, urine pdf . Not Available [facility] [address] [facility], [place], [address], 04/19/2019 15:08:38 12/07/19 21 12/11/2020 PATHO LOGY DAYNE batista Mater ial submi tted: . neck - LEFT NECK. Modif iers: left Not Available [facility] ([facility]) [address] [facility], [place], [address], 12/11/2020 15:08:34 12/07/19 21 12/11/2020 PATHO LOGY DAYNE Monique t Clini fernanda histo ry: . IMPRE SSION : BENIG N NEVUS Not Available [facility] ([facility]) [address] [facility], [place], [address], 12/11/2020 15:08:34 12/07/19 21 12/11/2020 PATHO LOGY REPOR T . Commen t Diagn osis: SKIN BIOPS Y, LEFT NECK: - INTRA DERMA L MELAN OCYTI C NEVUS . TMZ 12/11 1108 Local Not Available [facility] ([facility]) [address] [place], [address], 12/11/2020 15:08:34 12/07/19 21 12/11/2020 PATHO LOGY REPOR T . Commen t Elect kelsea pro d: . Chris carballo MD, Hough topat holog ist Not Available [facility] ([facility]) [address] [place], [address], 12/11/2020 15:08:34 12/07/19 21 12/11/2020 PATHO LOGY REPOR T . Commen t Gross descr iptio n: . RECEI STEWART IN FORMA RBEECCA LABEL ED WITH THE PATIE NT'S NAME AND LEFT NECK IS A 6 X 5 X 2 MM BROWN FRAGM ENT WITH A WRINK LED, VERROCHELLE SOLISA CE. THE ALYSSA N IS INKED BLUE. JARRETTEC LITO AND NINAR LNA SUBMI TTED IN ONE CASSE TTE. TRU/T MZ 12/08 0714 Local Not Available [facility] ([facility]) [address] [place], [address], 12/11/2020 15:08:34 0912/11/2020 PATHO LOGY REPOR T . Commen t Micro scopi c: . WITHI N THE DERMI S, THERE ARE NESTS AND SHEET S OF BENIG N NEVUS CELLS UNDER GOING PROGR ESSIV E MATUR ATION WITH INCRE ASING DERMA L DEPTH . THERE IS NO ATYPI A OR INFLA MMATI ON. Not Available [facility] ([facility]) [address] [facility], [place], [address], 12/11/2020 15:08:34 12/07/19 21 12/11/2020 PATHO LOGY REPOR T . Commen t Patho logis t provi ded ICD-1 0: D22.4 Not Available [facility] ([facility]) [address] [facility], [place], [address], 12/11/2020 15:08:34 12/07/19 21 12/11/2020 PATHO LOGY REPOR T . Commen t CPT . 37183 1 Not Available [facility] ([facility]) [address] [facility], [place], [address], 12/11/2020 15:08:34 12/07/19 21 12/11/2020 PATHO LOGY REPOR T . Commen t Mater ial submi tted: . back - MID BACK. Modif iers: mid Not Available [facility] ([facility]) [address] [facility], [place], [address], 12/11/2020 15:08:36 12/07/19 21 12/11/2020 PATHO LOGY REPOR T . Commen t Clini fernanda histo ry: . PIGME NTED PAPUL E, R/O ATYPI A Not Available [facility] ([facility]) [address] [facility], [place], [address], 12/11/2020 15:08:36 12/07/19 21 12/11/2020 PATHO LOGY REPOR T . 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 TMZ 12/11 1108 Local Not Available [facility] ([facility]) [address] [place], [address], 12/11/2020 15:08:36 12/07/19 21 12/11/2020 PATHO LOGY REPOR T . Commen t Elect kelsea pro d: . Chris carballo MD, Hough topat holog ist Not Available [facility] ([facility]) [address] [facility], [place], [address], 12/11/2020 15:08:36 12/07/19 21 12/11/2020 PATHO LOGY REPOR T . Commen t Gross descr iptio n: . RECEI STEWART IN [facility]MA REBECCA LABEL ED WITH THE PATIE NT'S NAME AND MID BACK IS A 6 MM BROWN SKIN PUNCH WITH A 4 MM DEPTH . THE ALYSSA N IS INKED BLUE. BISEC LITO AND ENTIR LAN SUBMI TTED IN ONE CASSE TTE. TRU/T MZ 12/08 0714 Local Not Available [facility] ([facility]) [address] [place], [address], 12/11/2020 15:08:36 12/07/19 21 12/11/2020 PATHO LOGY REPOR T . Commen t Micro scopi c: . THERE IS PREDO MINAN TLY NESTE D PROLI FERAT ION OF BENIG N NEVUS CELLS AT THE DERMA L-EPI DERMA L JUNCT ION. THERE IS BRIDG ING OF THE RETE, MILD FIBRO SIS OF THE PAPIL DEO DERMI S, SLIGH T LYMPH OCYTI C INFIL TRATE , AND MELAN OPHAG ES. THERE IS NO CYTOL OGIC ATYPI A. Not Available [facility] ([facility]) [address] [facility], [place], [address], 12/11/2020 15:08:36 12/07/19 21 12/11/2020 PATHO LOGY REPOR T . Commen t Patho logis t provi ded ICD-1 0: D22.5 Not Available [facility] ([facility]) [address] [facility], [place], [address], 12/11/2020 15:08:36 12/07/19 21 12/11/2020 PATHO LOGY REPOR T . Commen t CPT . 40052 1 Not Available [facility] ([facility]) [address] [facility], [place], [address], 12/11/2020 15:08:36 01/29/20 19 01/26/2019 MRI, upper extre mity joint (s), w/o contr ast No observ ation record ed. [address] ([facility]) [address] [place] [address], [address], 02/01/2019 15:13:59 03/03/20 19 02/28/2014 LDCT, chest , for lung cance r scree kaity No observ ation record ed. [email or web address] [facility] [address] [place] [address], [address], 2019 11:57:12 03/22/20 19 03/03/2019 LDCT, chest , for lung cance r scree kaity No observ ation record ed. [email or web address] [facility] [address] [place], [address], 03/30/2019 13:42:12 Result Notes None recorded. Problems Name Problem SNOMED Code Status Onset Date Resolution Date Notes Provider Name and Address Organization Details Recorded Time Essential hypertensio n 56799052 Active 2018 Trice Jose null, [place] - [facility] 9 13:50:08 Hyperlipide jacqueline 88863826 Active 2018 Trice Jose null, [place] - [facility] 9 13:50:16 Restless legs 20326106 Active 2018 Trice Jose null, [place] - [facility] 9 13:50:27 Atrial fibrillatio n 59683844 Active 2018 Trice Jose null, [place] - [facility] 9 13:50:49 Chronic depression 479446717 Active 2018 Trice Jose null, [place] - [facility] 9 13:51:14 Smooth muscle spasm 527250816 Active 2018 Carolina Veronicaje duncan, [place] - [facility] 9 11:31:04 Pain of right shoulder joint 7653007471656 9100 Active 2018 Trice Jose null, [place] - [facility] 9 17:26:05 Chronic low back pain 311337317 Active 2018 Trice song, [place] - [facility] 9 17:26:34 Problem Notes None recorded. Procedures Surgical History Date Name Laterality Status Provider Name and Address Organization Details Recorded Time 12/07/19 21 Shave Biopsy, Scalp, Neck, Hands, Feet, Genitalia completed Ekaterina Ahumada APRN [address], [place], [address], [place] - [facility] 12/06/2020 13:37:33 12/07/19 21 Punch Biopsies, Multiple completed Ekaterina Ahumada APRN [address], [place], [address], [place] - [facility] 12/06/2020 13:36:40 lumbar microdiscectomy completed Trice Rebeca [place] - [facility] 05/11/2018 13:44:19 lumbar spinal fusion completed Trice Jose [place] - [facility] 05/11/2018 13:44:47 laminectomy completed Trice HARRIS - [facility] 05/11/2018 13:44:59 placement of stent completed Trice HARRIS - [facility] 05/11/2018 13:45:48 Imaging Results None recorded. Procedure Notes None recorded. Medical Equipment None Reported. Allergies Allergen ID Allergen Name Allergen Category Reaction Reaction Severity Criticality Documentation Date Start Date Code Code System Note Provider Name and Address Organization Details Recorded Time 363297 Chantix medicatio n Not available Not available Not available 09/05/2020 69746 0 RxNorm Sandra Stears [place], [place] - [facility] 13:27:21 Medications Name Sig Start Date Stop Date Status Note LastModified by Organization Details LastModified Time vitamin d3 25 mcg (1000 ut) active Not Available Not Available No t Available losartan 50 mg tablet TAKE ONE TABLET BY MOUTH DAILY active Not Available Not Available No t Available atorvasta tin 40 mg tablet TAKE ONE TABLET BY MOUTH EVERY DAY active Not Available Not Available No t Available methocarb brando 500 mg tablet TAKE TWO TABLETS TWICE DAILY around THE clock 09/05 completed Not Available Not Available Not Available Augmentin 875 mg-125 mg tablet take 1 tablet by oral route every 12 hours for 7 days 08/14 completed Augmenti n 875-125 mg oral tablet;P rescribe Status: Prescrib ed on: 12/09/19 15 11:18AM; Disconti nued Status: Disconti nued on: 08/15/19 16 8:00AM;U ser: [email or web address];E st. Completi on: 12/16/19 15;Pharm acyVerif ied: 12/09/19 15 11:18AM Not Available Not Available Not Available ropinirol e 1 mg tablet TAKE ONE TABLET BY MOUTH IN THE AFTERNOO N AND TAKE THREE TABLETS IN THE EVENING active Not Available Not Available No t Available tizanidin e 2 mg tablet active Not Available Not Available Not Available sildenafi l 50 mg tablet TAKE ONE TABLET DAILY NEEDED FOR SEXUAL ACTIVITY active Not Available Not Available No t Available metoprolo l succinate ER 50 mg tablet,ex tended release 24 hr take 1 tablet (50 mg) by oral route once daily 05/11 completed metoprol ol succinat e 50 mg oral tablet extended release 24 hr;Recor ded Status: Recorded on: 09/09/19 14 8:22AM;U ser: [email or web address] Not Available Not Available Not Available hydrocodo ne 5 mg-acetam inophen 325 mg tablet TAKE ONE TABLET BY MOUTH EVERY 6 HOURS NEEDED active Not Available Not Available No t Available ropinirol e 3 mg tablet Take 1 tablet every day by oral route at bedtime for 90 days. active Not Available Not Available No t Available clopidogr el 75 mg tablet take 1 tablet (75 mg) by oral route once daily 09/05 completed Not Available Not Available Not Available aspirin 81 mg tablet,de layed release take 1 tablet (81 mg) by oral route once daily 05/11 completed aspirin 81 mg oral tablet,d elayed release (DR/EC); Recorded Status: Recorded on: 09/09/19 14 8:22AM;U ser: [email or web address] Not Available Not Available Not Available tramadol 50 mg tablet TAKE 2 TABLET(S ) 3 TIMES A DAY BY ORAL ROUTE FOR 30 DAYS. active Not Available Not Available No t Available bisoprolo l fumarate 5 mg tablet 1 po qd 09/05 completed Not Available Not Available Not Available oxycodone -acetamin ophen 10 mg-325 mg tablet TAKE ONE TABLET BY MOUTH EVERY 4 HOURS NEEDED FOR PAIN active Not Available Not Available No t Available tamsulosi n 0.4 mg capsule active Not Available Not Available Not Available baclofen 10 mg tablet active Not Available Not Available Not Available ropinirol e 2 mg tablet active Not Available Not Available Not Available cephalexi n 500 mg capsule TAKE ONE CAPSULE BY MOUTH FOUR TIMES DAILY 12/06 completed Not Available Not Available Not Available lisinopri l 10 mg tablet take 1 tablet (10 mg) by oral route once daily 05/11 completed lisinopr il 10 mg oral tablet;R ecorded Status: Recorded on: 09/09/19 14 8:22AM;U ser: [email or web address] Not Available Not Available Not Available losartan 25 mg tablet TAKE ONE TABLET EVERY DAY 09/05 completed Not Available Not Available Not Available nitroglyc ayanna 0.4 mg sublingua l tablet DISSOLVE 1 TABLET UNDER THE TONGUE EVERY 5 MINUTES NEEDED FOR CHEST PAIN. DO NOT EXCEED A TOTAL OF 3 DOSES IN 15 MINUTES. active Not Available Not Available No t Available docusate sodium 100 mg capsule active Not Available Not Available Not Available gabapenti n 300 mg capsule active Not Available Not Available Not Available diclofena c sodium 75 mg tablet,de layed release take one tablet in the morning and one tablet at night. 09/05 completed Not Available Not Available Not Available gabapenti n 100 mg capsule active Not Available Not Available Not Available ondansetr on 4 mg disintegr ating tablet active Not Available Not Available Not Available Mucinex 600 mg tablet, extended release take 1 pill po bid 08/14 completed Mucinex 600 mg oral tablet extended release 12hr;Pre scribe Status: Prescrib ed on: 12/09/19 15 11:19AM; Disconti nued Status: Disconti nued on: 08/15/19 16 8:00AM;U ser: [email or web address];E st. Completi on: 12/16/19 15;Pharm acyVerif ied: 12/09/19 15 11:19AM Not Available Not Available Not Available ezetimibe 10 mg tablet TAKE ONE TABLET BY MOUTH EVERY DAY active Not Available Not Available No t Available duloxetin e 60 mg capsule,d elayed release Take 1 capsule every day by oral route. active Not Available Not Available No t Available Revatio 20 mg tablet Take 1 tablet as needed by oral route. 09/05 completed Not Available Not Available Not Available ClearLax 17 gram/dose oral powder MIX 238 GRAMS INTO 64 OUNCE JUICE OR WATER AND DRINK DIRECTED FOR COLONOSC OPY PREP active Not Available Not Available No t Available Xarelto 20 mg tablet TAKE ONE TABLET BY MOUTH EVERY DAY active Not Available Not Available No t Available Vitals Date Recorded Body height Body mass index (BMI) Body weight Body temperature Respiratory rate Heart rate Oxygen saturation Oxygen saturation in Arterial blood by Pulse oximetry Systolic blood pressure Diastolic blood pressure Provider Name and Address Organization Details Last Updated DateTime 0 190.5 cm 24.6 kg/m2 53331.7 g 98 [degF] 16 /min 52 /min 98 % 98 % 118 mm[Hg] 70 mm[Hg] Amanda Resendiz [place] - [facility] 0 11:52:01 Date Recorded Body height Body mass index (BMI) Body weight Respiratory rate Oxygen saturation Oxygen saturation in Arterial blood by Pulse oximetry Heart rate Systolic blood pressure Diastolic blood pressure Provider Name and Address Organization Details Last Updated DateTime 1 190.5 cm 24.9 kg/m2 49076.8 8 g 18 /min 96 % 96 % 52 /min 118 mm[Hg] 78 mm[Hg] Sandra Hammonds [place] - [facility] 1 13:28:29 Date Recorded Body height Respiratory rate Body mass index (BMI) Body weight Oxygen saturation Oxygen saturation in Arterial blood by Pulse oximetry Heart rate Systolic blood pressure Diastolic blood pressure Provider Name and Address Organization Details Last Updated DateTime 1 190.5 cm 18 /min 25.2 kg/m2 20768.6 6 g 97 % 97 % 58 /min 122 mm[Hg] 76 mm[Hg] Sandra Hammonds [place] - [facility] 1 13:14:32 Date Recorded Body height Body mass index (BMI) Body weight Body temperature Respiratory rate Oxygen saturation Oxygen saturation in Arterial blood by Pulse oximetry Heart rate Systolic blood pressure Diastolic blood pressure Provider Name and Address Organization Details Last Updated DateTime 9 190.5 cm 24.9 kg/m2 73755.8 8 g 98.2 [degF] 14 /min 98 % 98 % 44 /min 120 mm[Hg] 86 mm[Hg] Amanda Resendiz [place] - [facility] 9 15:20:07 Date Recorded Body height Body mass index (BMI) Body weight Respiratory rate Heart rate Oxygen saturation Oxygen saturation in Arterial blood by Pulse oximetry Systolic blood pressure Diastolic blood pressure Provider Name and Address Organization Details Last Updated DateTime 9 190.5 cm 24.5 kg/m2 81876.5 g 16 /min 50 /min 97 % 97 % 124 mm[Hg] 78 mm[Hg] Carolina Payan [place] - [facility] 9 10:06:24 Social History Question Answer Notes LastModified by Organizat ion Details LastModified Time Tobacco Smoking Status Current Every Day Smoker Trice song [place] - [facility] 05/11/2018 13:52:06 Do You Have An Advance Directive? No Information not available 09/05/2020 What Is Your Level Of Caffeine Consumption? Moderate Information not available 09/05/2020 What Type Of Diet Are You Following? REGULAR Information not available 09/05/2020 Which Illicit Or Recreational Drugs Have You Used? No Information not available 09/05/2020 Hard Of Hearing Or Deaf In One Or Both Ears? No Information not available 09/05/2020 Legally Blind In One Or Both Eyes? No Information no t available 09/05/2020 Live Alone Or With Others? With Others Information not available 09/05/2020 What Was The Date Of Your Most Recent Tobacco Screening? 11/03/2018 Information not available 11/03/2018 How Much Tobacco Do You Smoke? 1.5 PPD [email or web address] Information not available 08/19/2018 General Stress Level Low Information not available 09/05/2020 Has Tobacco Cessation Counseling Been Provided? Yes [email or web address] Information not available 08/19/2018 On What Date Was Tobacco Cessation Counseling Provided? 11/03/2018 Information not available 11/03/2018 How Many Years Have You Smoked Tobacco? 40 Information not available 11/03/2018 Sex: Male Functional Status Question Answer Note LastModified by Organizat ion Details LastModified Time What is your level of alcohol consumption? None Information not available 09/05/2020 Do you or have you ever used smokeless tobacco? Never used smokeless tobacco Information not available 11/03/2018 Are you able to walk? YESWOREST Information not available 09/05/2020 Are you able to care for yourself? Yes Information not available 09/05/2020 Do you or have you ever used e-cigarettes or vape? Never used electronic cigarettes Information not available 11/03/2018 What is your exercise level? None Information not available 09/05/2020 Mental Status None recorded. Family History Relationship Description Onset Age of this Age Resolved Age Notes LastModified by Organization Details LastModified Time Father No current problems or disability [email or web address] Not available 11:42:41 Mother No current problems or disability [email or web address] Not available 11:42:41 Medical History Condition Response Myocardial Infarction Y Hyperlipidemia Y Heart Disease Y Atrial Fibrillation Y Restless Leg Syndrome Y Hypertension Y Depression Y Immunizations Vaccine Type Date Status Note Provider Nam e and Address Organization Details Recorded Time Tdap 08/19/2018 completed Not Available [facility] 04/10/2019 03:55:50 Past Encounters Encounter ID Performer Location Encounter Start Date Encounter Closed Date Diagnosis/Indication Diagnosis SNOMED-CT Code Diagnosis ICD10 Code Diagnosis Note [id number] Shadi Ya MD [facility] [address] [place] [address] 05/11/2018 13:21:01 05/11/2018 14:55:11 Essential hypertension 36580632 I10 Hyperlipidemia 85932049 E78.2 Stented co ronary artery 020538997 Z95.5 Chronic low back pain 27 9431333 M54.5 Right foot drop 70638467 01 34420 M21.371 Restless legs 38704367 G 25.81 [id number] Shadi Ya MD [facility] [address] [place] [address] 07/15/2018 14:06:10 07/15/2018 15:03:25 Long-term current use of drug therapy 750256241 Z79.899 Chronic back pain 262853 002 M54.13 [id number] Shadi Ya MD [facility] [address] [place] [address] 08/19/2018 08:47:27 08/19/2018 10:01:31 General examination of patient 333209083 Z00.00 Hyperlipid emia screening 625248214 Z13.220 Exercises education, guidance, and counseling 875753779 Z71.82 Active or passive immunization 001677614 Z23 Chronic low back pain 27 9056570 M54.5 Fatigue 19388317 R53.83 [id number] Shadi Ya MD [facility] [address] [place] [address] 09/16/2018 08:11:31 09/16/2018 10:40:57 Smooth muscle spasm 747649556 M62.838 Chronic low back pain 27 8806145 M54.5 Hyperlipidemia 29470265 E78.2 Restless legs 43920784 G 25.81 [id number] Shadi Ya MD [facility] [address] [place] [address] 10/14/2018 12:51:21 10/14/2018 13:31:31 Chronic low back pain 088387529 M54.5 Long-term drug therapy 514539233 Z79.261 [id number] Shadi Ya MD [facility] [address] [place] [address] 11/03/2018 15:29:19 11/03/2018 16:20:45 Pain of right shoulder joint 4191766601 7847509 M25.809 [id number] Shadi Ya MD [facility] [address] [place] [address] 11/17/2018 15:03:31 11/17/2018 15:42:36 Impingement syndrome of right shoulder region 9207530997 06628 M75.41 [id number] Shadi Ya MD [facility] [address] [place] [address] 01/13/2019 14:50:08 01/13/2019 17:30:19 Pain of right shoulder joint 9327179198 5451700 M25.511 Chronic low back pain 27 8348159 M54.5 Impingemen t syndrome of right shoulder region [id number] M75.41 [id number] Shadi Ya MD [facility] [address] [place] [address] [place] [address] 02/16/2019 09:58:12 02/16/2019 10:54:37 Chronic low back pain [id number] M54.5 Pain of ri ght shoulder joint [id number] M25.049 [id number] Shadi Ya MD [facility] [address] [place] [address] [place] [address] 04/14/2019 11:38:52 04/14/2019 12:52:34 Chronic low back pain [id number] M54.5 Long-term drug therapy [id number] Z79.819 [id number] Ekaterina Ahumada APRN [place] [address] [place] [address] 09/05/2020 12:48:55 09/05/2020 14:15:10 Changing shape of pigmented skin lesion [id number] L98.8 return for 8 mm punch on nevus located on mid back Melanocytic nevus 901439 001 D22.9 return for shave on left posterior neck Changing c olor of pigmented skin lesion 187005611 L98.8 return for 6 mm punch on right chest/base of neck [id number] EkaterinaRICHAR [place] [facility] [address] [facility] [place] [address] 12/06/2020 12:36:33 12/06/2020 13:31:54 Melanocytic nevus [id number] D22.9 return for shave on left posterior neck Health Concerns Section Related Observation LastModified by Organization Detai ls LastModified Time None Recorded Concern Status LastModified by Organization Details LastModified Time None Recorded Advance Directives Directive N: Payers Insurance Date Sequence Insurance Name Policy Number Policy Olmedo Covered Member ID Olmedo Member ID Guarantor Name 09/05/2020 1 [place] [id number] Alex P Gallardo [id number] Alex Gallardo 05/28/2024 1 [place] Alex Gallardo [id number] Alex Gallardo 05/28/2024 NGS [facility] - [place] [facility] (MEDICARE) Alex Gallardo [id number] Alex Gallardo 05/28/2024 2 [employer] SUPPLEMENTAL - [employer]UR[employer] (MEDICARE SUPPLEMENT) Alex Gallardo [id number] Alex Gallardo Notes Date Note Type Note Provider Name and Address Organization Details Recorded Time 01/13/2019 text/html 63 yo male here with right shoulder and right arm pain and bilateral back pain. He is currently taking tramadol for his back pain. Insurance will not cover tramadol except for weekly prescriptions now. For his shoulder, He did 5 visits of PT over 2 weeks and could not tolerate any more visits. He has had an xray as requested by the insurance. This shoulder pain has been ongoing since July of 2018. Pt. is very angry that his insurance will not approve the MRI. Insurance states that they have not received any documentation from this office even though we have reports of completed faxes and requires a phone call to [phone]. Shadi Ya MD [address], [place], [address], [place] [facility] 01/25/2019 09:26:18 02/16/2019 text/html 63 yo male here with right shoulder and right arm pain and bilateral back pain. He is currently taking tramadol for his back pain. Insurance will not cover tramadol except for weekly prescriptions now. For his shoulder, He did 5 visits of PT and could not tolerate any more visits. He has had an xray. This shoulder pain has been ongoing since July of 2018. Pt saw ortho, wants to review that visit Shadi Ya MD [address], [place], [address], [place] [facility] 02/16/2019 10:37:08 04/14/2019 text/html 64 y/o male here today to discuss MRI results and 1 month f/u for tramadol refill. Pt c/o of right foot pain. Shadi Ya MD [address], [place], [address], [place] [facility] 04/14/2019 12:42:45 09/05/2020 text/html Alex is a 65 ye ar old male who presents to Dermatology today for a skin check. Personal history of skin cancer, unknown type. He agrees to a full skin check. Ekaterina Ahumada APRN [address], [place], [address], [place] [facility] 09/05/2020 14:22:00 12/06/2020 text/html Alex is a 65 ye ar old male who returns to Dermatology today for6 mm punch on right base of neck - 4 nylon - however, he has since picked off the lesionshave on left neck8 mm punch on mid back - 4 nylon Ekaterina Ahumada APRN [address], [place], [address], [place] [facility] 12/06/2020 13:39:08
--- OUTSIDE RECORDS SUMMARY | 2024-09-02 13:36 | XMS_ITS | Clinical Summary ---
Author Organization Healthcare Address [address] [place] [address] Care Team Providers Care Inspector Timers Name Role Phone Conchis Meza Primary Care Provider [phone] Allergies No known active allergies Medications atorvastatin (Lipitor) 40 MG tablet 5 Active baclofen (Lioresal) 10 MG tablet 4 Active D3 Super Strength 50 MCG (1999 UT) capsule 4 Active losartan (Cozaar) 50 MG tablet 4 Active Zetia 10 MG tablet 5 Active Multiple Vitamin (multivitamin) capsule Take 1 capsule by mouth 1 (one) time each day. Active nitroglycerin (Nitrostat) 0.[address] 1 tablet (0.4 mg) under the tongue 3 (three) times a day if needed. Active ondansetron ODT (Zofran-ODT) 4 MG disintegrating tablet 4 Active rivaroxaban (Xarelto) 20 MG tablet Take 1 tablet (20 mg) by mouth Daily. Active rOPINIRole (Requip) 2 MG tablet 5 Active sildenafil (Viagra) 50 MG tablet TAKE 1 TABLET BY MOUTH ONCE DAILY NEEDED FOR ED 3 Active traMADol (Ultram) 50 MG tablet Take 1 tablet (50 mg) by mouth. Active Family History Medical History Relation Name Comments Other cancer Other Relation Name Status Comments Other Social History Tobacco Use Types Packs/Day Years Used Date Smoking Tobacco: Every Day Cigarettes 1 50 Smokeless Tobacco: Never Tobacco Cessation:Ready to Q uit: Not Asked; Counseling Given: Not Answered Alcohol Use Standard Drinks/Week Comments Yes 21 (1 standard drink = 0.6 oz pure alcohol) Patient drinks approx 2-3 beers of a morning for back pain PHQ-2 Answer Date Recorded Patient Health Questionnaire-2 Score 0 06/23/2023 Sex and Gender Information Value Date Recorded Sex Assigned at Not on file Legal Sex Male 6:59 PM EDT Gender Identity Not on file Sexual Orientation Not on file Last Filed Vital Signs Vital Sign Reading Time Taken Comments Blood Pressure 151/94 06/23/2023 12:31 PM EDT Pulse 59 06/23/2023 12:31 PM EDT Temperature 35.5 C (95.9 F) 06/23/2023 12:31 PM EDT Respiratory Rate - - Oxygen Saturation - - Inhaled Oxygen Concentration - - Weight 92.3 kg (203 lb 8 oz) 06/23/2023 12:31 PM EDT Height 188 cm (6' 2.02 ) 06/23/2023 12:31 PM EDT Body Mass Index 26.12 06/23/2023 12:31 PM EDT Plan of Treatment Health Maintenance Due Date Last Done Comments [facility]-Depression Screening 1955 [facility]-Infant/Child/Adol SDOH Screenings 1955 [facility]- SDOH Screenings 1973 [facility]-Adult SDOH Screenings 1973 CT Colonography 2000 Colonoscopy 2000 FIT-DNA 2000 FIT 2000 FOBT 2000 Sigmoidoscopy 2000 [facility]-Colorectal Cancer Screening 2000 [facility]-Pneumococcal Vaccine: 50+ Years (1 of 1 - PCV) 2005 [facility]-Zoster Vaccines (1 of 2) 2005 TIZ-VIPEU-67 Vaccine ( - season) 2023 01/15/2022, 10/12/2021, 01/19/2021, Additional history exists [facility]-Influenza Vaccine (Season Ended) 2024 01/15/2022 [facility]-DTaP,Tdap,and Td Vaccines (2 - Td or Tdap) 08/19/2028 08/19/2018 [facility]-RSV Vaccine: 60+ Years or (1 - 1-dose 75+ series) 2030 HPV Vaccines Aged Out No longer eligi ble based on patient's age to complete this topic [facility]-HIB Vaccines Aged Out No longer e ligible based on patient's age to complete this topic [facility]-Hepatitis A Vaccines Aged Out No longer eligible based on patient's age to complete this topic [facility]-IPV Vaccines Aged Out No longer e ligible based on patient's age to complete this topic [facility]-Rotavirus Vaccines Aged Out No lo nger eligible based on patient's age to complete this topic Insurance MEDICARE [facility] Care Teams Inspector Timers Relationship Specialty Start Date End Date Conchis Meza DO [address] [place] [address] PCP - General 08/04/20
--- OUTSIDE RECORDS SUMMARY | 2024-09-02 13:36 | XMS_ITS | Encounter Summary ---
Author Organization Healthcare Address [address] [place] [address] Care Team Providers Care Supervisor Fertilizer Name Role Phone Conchis Meza DO Primary Care Provider [phone] Encounter Details Date Type Department Care Team (Late st Contact Info) Description 03/07/2023 Orders Only External Location [address] [place] [address] Provider, External Social History Tobacco Use Types Packs/Day Years Used Date Smoking Tobacco: Every Day Sex and Gender Information Value Date Recorded Sex Assigned at Not on file Legal Sex Male 6:59 PM EDT Gender Identity Not on file Sexual Orientation Not on file documented as of this encounter Plan of Treatment Not on file documented as of this encounter Procedures Procedure Name Priority Date/Time Associated Diagnosis Comments MR OUTSIDE IMAGES 03/07/2023 7:34 AM EST documented in this encounter Results * MR transfer of outside films (03/07/2023 7:34 AM EST) Anatomical Region Laterality Modality Magnetic Resonan ce 03/07/2023 7:34 AM EST us External Provider IMG MRI PROCEDURES Final Resul t documented in this encounter Visit Diagnoses Not on filedocumented in this encounter Care Teams Supervisor Fertilizer Relationship Specialty Start Date End Date Conch[place] [address] PCP - General 08/04/20 documented as of this encounter
--- OUTSIDE RECORDS SUMMARY | 2024-09-02 13:36 | XMS_ITS | Encounter Summary ---
Author Organization Healthcare Address [address] [place] [address] Care Team Providers Care Translator And Interpreter Name Role Phone Conchis Meza DO Primary Care Provider [phone] Encounter Details Date Type Department Care Team (Late st Contact Info) Description 04/24/2023 Orders Only External Location [address] [place] [address] Provider, External Social History Tobacco Use Types [...] Procedure Name Priority Date/Time Associated Diagnosis Comments CT OUTSIDE IMAGES 04/24/2023 1:32 PM EST documented in this encounter Results * CT OUTSIDE IMAGES (04/24/2023 1:32 PM EST) Anatomical Region Laterality Modality Computed Tomogra phy 04/24/2023 1:32 PM EST us External Provider IMG CT PROCEDURES Final Result documented in this encounter Visit Diagnoses Not on filedocumented in this encounter Care Teams Translator And Interpreter Relationship Specialty Start Date End Date [place] [address] PCP - General 08/04/20 documented as of this encounter
--- OUTSIDE RECORDS SUMMARY | 2024-09-02 13:36 | XMS_ITS | Clinical Summary ---
Author Organization [facility] Address , [place] Care Team Providers Care Saturator Operator Name Role Phone Irving Pederson MD Primary Care Provider [phone] Medications atorvastatin 40 MG PO TABS take 40 mg by mouth daily. Active aspirin 81 MG PO CHEW take 162 mg by mouth daily. Active Multiple Vitamin (MULTIVITAMIN) PO CAPS take 1 Cap by mouth daily. Active metoprolol succinate 50 MG PO tablet XL take 50 mg by mouth daily. Active clopidogrel (PLAVIX) 75 MG PO TABS take 1 Tab by mouth daily. 30 Tab 11 4 Active nitroGLYCERIN 0.4 MG SL tablet 0.4 mg by Sublingual route every 5 minutes as needed for Chest pain. max = 3 doses. If CP persists after 1st dose, call 911 Active Active Problems Problem Noted Date Diagnosed Date CAD (coronary artery disease) 06/12/2013 Essential hypertension, benign 06/12/2013 Mixed hyperlipidemia 06/12/2013 Tobacco use disorder 06/12/2013 Angina pectoris, unstable 06/11/2013 Family History Medical History Relation Name Comments Hypertension Brother Aneurysm Father Relation Name Status Comments Brother Father Social History Tobacco Use Types Packs/Day Years Used Date Smoking Tobacco: Smoker, Current Status Unknown Cigarettes 1 38 Tobacco Cessation:Ready to Q uit: Yes; Counseling Given: No Alcohol Use Standard Drinks/Week Comments Yes 8.3 (1 standard drink = 0.6 oz p ure alcohol) Sex and Gender Information Value Date Recorded Sex Assigned at Not on file Legal Sex Male 11:53 AM EST Gender Identity Not on file Sexual Orientation Not on file Last Filed Vital Signs Vital Sign Reading Time Taken Comments Blood Pressure 142/79 06/12/2013 8:40 AM EDT Pulse 60 06/12/2013 8:40 AM EDT immed. post-AMB with cardiac rehab Temperature 36.5 C (97.7 F) 06/12/2013 7:00 AM EDT Respiratory Rate 15 06/12/2013 7:00 AM EDT Oxygen Saturation 96% 06/12/2013 8:4 0 AM EDT Inhaled Oxygen Concentration - - Weight 98 kg (216 lb) 06/11/2013 12:29 PM EDT Height 190.5 cm (6' 3 ) 06/11/2013 12:2 9 PM EDT Body Mass Index 27 06/11/2013 12:29 PM EDT Plan of Treatment Health Maintenance Due Date Last Done Comments HEPATITIS C VIRUS SCREENING 1955 TETANUS 1955 TDAP (ADULT) 1974 COLORECTAL CANCER SCREENING DISCUSSION 2000 PNEUMOCOCCAL VACCINE SERIES (1 of 1 - PCV) 2005 ZOSTER (SHINGLES) VACCINE (1 of 2) 2005 PROSTATE CANCER SCREENING DISCUSSION 2010 LIPID SCREENING 06/12/2018 06/12/2013 ABDOMINAL AORTIC ANEURYSM HI GH RISK SCREEN 2020 COVID-19 VACCINE ( - 2023-2 5 season) 2023 INFLUENZA VACCINE (Season Ended) 2024 RSV VACCINE (1 - 1-dose 75+ series) 2030 HEP B VACCINE Aged Out No longer elig ible based on patient's age to complete this topic Procedures Procedure Name Priority Date/Time Associated Diagnosis Comments LIPID PANEL W CALCULATED LDL Routine 06/12/2013 4:00 AM EDT from Last 3 Months or Most Recently Relevant to Health Maintenance Results * (ABNORMAL) LIPID PANEL W CALCULATED LDL (06/12/2013 4:00 AM EDT) CHOLESTEROL 123 <200 mg/dL Comment: [<200 mg/dL: Desirable] [200-239 mg/dL: Borderline High] [>239 mg/dL: High] TRIGLYCERIDES-TR IGE 143 <150 mg/dL Comment: [<150 mg/dL: Desirable] [150-199 mg/dL: Borderline] [200-499 mg/dL: High] [>500 mg/dL: Very High] HDL CHOLESTEROL 29(L) >60.0 mg/dL Comment: [<40 mg/dL: Low (High Risk)] [>59 mg/dL: High (Low Risk)] LDL CHOLESTEROL, CALCULATED 65 0 - 99 mg/dL Comment: [<100 mg/dL: Optimal] [100-129 mg/dL: Near Optimal] [130-159 mg/dL: Borderline High] [160-189 mg/dL: High] [>189 mg/dL: Very High] CHOLESTEROL, TOTAL/HDL 4.2 <4.5 Comment:[<4.5: Low risk] NON-HDL CHOLESTEROL (CHOL-HDL) 94 <130 mg/dL 06/12/2013 4:00 AM EDT 06/12/2013 4:52 AM EDT us Shade Yoon MD CHEMISTRY ORDERABLES Final Res ult from Last 3 Months or Most Recently Relevant to Health Maintenance Insurance Care Teams Saturator Operator Relationship Specialty Start Date End Date Irving Pederson MD PCP - General Family Medicine 10/25/11
--- OUTSIDE RECORDS SUMMARY | 2024-09-02 13:36 | XMS_ITS | Encounter Summary ---
Author Organization [facility] Address [address] [place] [address] Care Team Providers Care Power Reactor Operator Name Role Phone Shadi Ya MD Primary Care Provider [phone] Reason for Referral * Consultation (Routine) - Canceled Specialty Diagnoses / Procedures Referred By Contac t Referred To Contact Pain Management / Physical Medicine and Rehab Diagnoses Low back pain Shadi Ya MD [address] [place] [address] [place] [address] Phone: tel: fax: Pierre Crane MD Referral ID Status Reason Start Date Expiration Date V isits Requested Visits Authorized [id number] Canceled 11/17/2018 11/18/2019 1 1 Encounter Details Date Type Department Care Team (Latest Contact Info) Description 11/17/2018 Transcribe Orders Patient Access Center [address] [place] [address] Shadi Ya MD [address] [place] [address] Low back pain (Primary Dx) Social History Tobacco Use Types Packs/Day Years Used Date Smoking Tobacco: Never Assessed Sex and Gender Information Value Date Recorded Sex Assigned at Not on file Legal Sex Male 2:46 PM EDT Gender Identity Not on file Sexual Orientation Not on file documented as of this encounter Plan of Treatment Scheduled Referrals Name Type Priority Associated Diagnoses Order Schedule Ambulatory referral to Pain Clinic Outpatient Referral Routine Low back pain Ordered: 11/17/2018 documented as of this encounter Visit Diagnoses Diagnosis Low back pain- Primary Lumbago documented in this encounter Care Teams Power Reactor Operator Relationship Specialty Start Date End Date Shadi Ya MD [address] [place] [address] PCP - General Family Medicine 01/20/19 documented as of this encounter
--- OUTSIDE RECORDS SUMMARY | 2024-09-02 13:36 | XMS_ITS | Clinical Summary ---
Author Organization [facility] Address [address] [place] [address] Care Team Providers Care Microarray Operations Vice President Name Role Phone Shadi Ya MD Primary Care Provider [phone] Allergies No known active allergies Medications methocarbamol (ROBAXIN) 500 mg tabletIndicatio ns:2 tabs every 8 hours Take 500 mg by mouth As directed. Indications: 2 tabs every 8 hours Active traMADol (ULTRAM) 50 mg tabletIndicatio ns:2 tabs every 8 hours Take 50 mg by mouth As directed. Indications: 2 tabs every 8 hours Active atorvastatin (LIPITOR) 40 mg tablet Take 40 mg by mouth At bedtime. Active losartan (COZAAR) 25 mg Take 25 mg by mouth Daily. Active rivaroxaban (XARELTO) 20 mg tablet Take 20 mg by mouth Daily. Active bisoprolol (ZEBETA) 5 mg tablet Take 5 mg by mouth Daily. Active ezetimibe (ZETIA) 10 mg tablet Take 10 mg by mouth Daily. Active rOPINIRole (REQUIP) 3 mg Tab Take 3 mg by mouth Three times a day. Active nitroglycerin (NITROSTAT) 0.4 mg SL tablet Take 0.4 mg sublingually As needed for Chest pain. Active Active Problems No known active problems Social History Tobacco Use Types Packs/Day Years [...] Sign Reading Time Taken Comments Blood Pressure 140/82 11/26/2018 1:23 PM EDT Pulse 72 11/26/2018 1:23 PM EDT Temperature - - Respiratory Rate 18 11/26/2018 1:23 PM EDT Oxygen Saturation - - Inhaled Oxygen Concentration - - Weight 88.5 kg (195 lb) 01/26/2019 5:15 PM EST Height 190.5 cm (6' 3 ) 11/26/2018 1:23 PM EDT Body Mass Index 24.37 11/26/2018 1:23 PM EDT Plan of Treatment Health Maintenance Due Date Last Done Comments COLOGUARD 1955 COLONOSCOPY 1955 Colorectal Screening Combination 1955 FIT 1955 HEP C SCREENING 1955 SIGMOIDOSCOPY 1955 ANNUAL WELLNESS EXAM 1958 DTAP/TDAP/TD VACCINE (1 - Tdap) 1974 PNEUMOCOCCAL VACCINE 65+ YEA RS (1 of 1 - PCV) 2005 Shingles Vaccine (Shingrix) (1 of 2) 2005 AAA SCREEN (Abdominal Aortic Aneurysm) 2020 INFLUENZA VACCINE (Season Ended) 2024 HEP A VACCINE Aged Out No longer elig ible based on patient's age to complete this topic HIB VACCINE Aged Out No longer eligi ble based on patient's age to complete this topic ROTOVIRUS VACCINE Aged Out No longer eligible based on patient's age to complete this topic Insurance Care Teams Microarray Operations Vice President Relationship Specialty Start Date End Date Shadi Ya MD [address] [place] [address] PCP - General Family Medicine 01/20/19
--- OUTSIDE RECORDS SUMMARY | 2024-09-02 13:36 | XMS_ITS | Clinical Summary ---
Author Organization [facility] Address [address] [place] [address] Care Team Providers Care Credit Cashier Name Role Phone Conchis Meza Primary Care Provider [phone] Source Comments This information has been disclosed to you from confidential records protectedfrom disclosure by state law. You shall make no further disclosure of thisinformation without the specific, written, and informed release of theindividual to whom it pertains, or as otherwise permitted by law. A generalauthorization for the release of medical or other information is not sufficientfor the purposes of therelease of HIV test results or diagnoses. [id number] Allergies No known active allergies Medications atorvastatin (LIPITOR) 10 MG tablet Take 10 mg by mouth daily. Active roPINIRole (REQUIP) 0.25 MG tablet Take 0.25 mg by mouth 3 times a day. Active ibuprofen (MOTRIN) 400 MG tablet Take 400 mg by mouth every 6 hours as needed for Pain. Active acetaminophen (TYLENOL) 325 MG tablet Take 650 mg by mouth every 6 hours as needed. Active lovastatin (MEVACOR) 10 MG tablet Take 10 mg by mouth daily with dinner. Active Social History Tobacco Use Types Packs/Day Years Used Date Smoking Tobacco: Some Days Smokeless Tobacco: Never PHQ-2 Answer Date Recorded PHQ-2 Total Score 0 08/09/2020 Sex and Gender Information Value Date Recorded Sex Assigned at Not on file Legal Sex Male 3:24 PM EST Gender Identity Not on file Sexual Orientation Not on file Last Filed Vital Signs Vital Sign Reading Time Taken Comments Blood Pressure - - Pulse - - Temperature - - Respiratory Rate - - Oxygen Saturation - - Inhaled Oxygen Concentration - - Weight 90.7 kg (200 lb) 08/09/2020 2:00 PM EDT Height 190.5 cm (6' 3 ) 08/09/2020 2:00 PM EDT Body Mass Index 25 08/09/2020 2:00 PM EDT Plan of Treatment Not on file Insurance MEDICARE A AND [employer] Care Teams Credit Cashier Relationship Specialty Start Date End Date Conchis Meza DO [address] [place] [address] PCP - General Family Medicine 07/14/20
--- OUTSIDE RECORDS SUMMARY | 2024-09-02 13:36 | XMS_ITS | Encounter Summary ---
Author Organization [facility] Address [address] [place] [address] Care Team Providers Care Barrow Worker Name Role Phone Shadi Ya MD Primary Care Provider Encounter Details Date Type Department Care Team (Late st Contact Info) Description 05/06/2020 Orders Only [facility] [address] [address] Jasiel Martini MD [address] [place] [address] Social History Tobacco Use Types Packs/Day Years [...] documented as of this encounter Visit Diagnoses Not on filedocumented in this encounter Care Teams Barrow Worker Relationship Specialty Start Date End Date Shadi Ya MD [address] [place] [address] [place] [address] PCP - General Family Medicine 01/20/19 documented as of this encounter
--- OUTSIDE RECORDS SUMMARY | 2024-09-02 13:36 | XMS_ITS | Encounter Summary ---
Author Organization [facility] Address [address] [address] Care Team Providers Care Crop Puller Name Role Phone Shadi Ya MD Primary Care Provider [phone] Encounter Details Date Type Department Care Team (Late st Contact Info) Description 12/15/[address] [place] [address] Connie Alberto DO Social History Tobacco Use Types Packs/Day Years [...] on file documented as of this encounter Miscellaneous Notes * Telephone Encounter - Melania Ramirez - 12/15/2018 2:47 PM EDT error documented in this encounter Plan of Treatment Not on file documented as of this encounter Visit Diagnoses Not on filedocumented in this encounter Care Teams Crop Puller Relationship Specialty Start Date End Date Shadi Ya MD [address] [place] [address] [place], [place] [address] PCP - General Family Medicine 01/20/19 documented as of this encounter
== END 2024-09-02 23:59 | disposition home or self-care (01) ==
LOC: RT 12:28
PROVIDERS: PCP Family Medicine; Visit Provider Nurse Practitioner Family
DX: I50.20 Unspecified systolic (congestive) heart failure (principal); I42.8 Other cardiomyopathies
CPT/HCPCS: 93308